=== PATIENT | male | born 1970 | race Caucasian/White ===

== ENCOUNTER 2017-05-16 07:10 | Inpatient (IN) | payer SELFPAY ==
[~2017-05-16] VITALS: Ht 180.3 cm; Wt 127.0 kg
[2017-05-16] VITALS (9 sets, daily range): BP systolic 138–171; BP diastolic 88–109; PULSE 86–112; RESP 13–19; TEMP 97.7–99.4; O2SAT 94–98
[~2017-05-16 07:10] MED LIST: IBUP600T26 PO; PALI117P IM; PENI500T PO; PERC5TAB12 PO
[2017-05-16] MEDS ORDERED: IOHEXOL 350 MG/ML 10 ML VIAL (for RAD DIAG) IVCONTRAST ONE (07:11)
[2017-05-16] MEDS ORDERED: SODIUM CHLOR 0.9% 1000 ML INJ 1,000 ML IV SCH (07:19)
[2017-05-16] MEDS ORDERED: DIPHTH/TETANUS/ACEL PERTUSSIS (BOOSTER) 0.5 ML VIAL/PFS IM ONE (07:30)
[2017-05-16] MEDS ORDERED: SODIUM CHLORIDE 0.9% FLUSH 10 ML FLUSH IVF PRN (07:30)
[2017-05-16] MEDS ORDERED: ceFAZolin 2 GM PREMIX 50 ML IV ONE (07:30)
[2017-05-16 07:59] LABS: I-STAT POTASSIUM 2.8 MMOL/L (3.5-4.9)
[2017-05-16 08:02] LABS: AUTOMATED NEUTROPHIL # 6.4 TH/MM3 (1.8-7.7); BASOPHIL % 0.4 % (0.0-2.0); HEMATOCRIT 43.4 % (39.0-51.0); HEMO FLAGS DIFF FINAL; LYMPH % 17.3 % (9.0-44.0); LYMPHOCYTE # 1.5 TH/MM3 (1.0-4.8); MEAN CELL VOLUME 92.4 FL (80.0-100.0); MEAN CORPUSCULAR HEMOGLOBIN 32.2 PG (27.0-34.0); MEAN CORPUSCULAR HGB CONC 34.9 % (32.0-36.0); MONO % 8.5 % (0.0-8.0); NEUT % 73.8 % (16.0-70.0); PLATELET COUNT 164 TH/MM3 (150-450); RED CELL DISTRIBUTION WIDTH 14.1 % (11.6-17.2); WHITE BLOOD COUNT 8.7 TH/MM3 (4.0-11.0)
[2017-05-16 08:13] LABS: APTT (PATIENT) 23.1 SEC (24.3-30.1); INTERNATIONAL NORMALIZED RATIO 1.1 RATIO; PROTHROMBIN TIME - PATIENT 11.9 SEC (9.8-11.6)
[2017-05-16] MEDS ORDERED: HYDROmorphone HCL PF 1 MG/ML VIAL IV PUSH ONE (08:15)
--- NOTE | 2017-05-16 08:38 | RADRPT ---
EXAM DATE/TIME: 05/16/2017 08:23 [facility] COMPARISON: No previous studies available for comparison. INDICATIONS : Seizure today with fall. RADIATION DOSE: 53.40 CTDIvol (mGy) MEDICAL HISTORY : None SURGICAL HISTORY : None. ENCOUNTER: Initial ACUITY: 1 day PAIN SCALE: 0/10 LOCATION: cranial TECHNIQUE: Multiple contiguous axial images were obtained of the head. Using automated exposure control and adj ustment of the mA and/or kV according to patient size, radiation dose was kept as low as reasonably a chievable to obtain optimal diagnostic quality images. DICOM format image data is available electro nically for review and comparison. FINDINGS: CEREBRUM: The ventricles are normal for age. No evidence of midline shift, mass lesion, hemorrhage or acute in farction. No extra-axial fluid collections are seen. POSTERIOR FOSSA: The cerebellum and brainstem are intact. The 4th ventricle is midline. The cerebellopontine angle i s unremarkable. EXTRACRANIAL: The visualized portion of the orbits is intact. SKULL: The calvaria is intact. No evidence of skull fracture. CONCLUSION: No acute intracranial disease. Pepe Samuels MD on May 16, 2017 at 8:31 Board Certified Radiologist. This report was verified electronically.
--- NOTE | 2017-05-16 08:56 | RADRPT ---
EXAM DATE/TIME: 05/16/2017 08:23 [facility] COMPARISON: No previous studies available for comparison. INDICATIONS : Possible seizure with fall. RADIATION DOSE: 21.64 CTDIvol (mGy) MEDICAL HISTORY : None SURGICAL HISTORY : None. ENCOUNTER: Initial ACUITY: 1 day PAIN SCALE: 4/10 LOCATION: neck TECHNIQUE: Volumetric scanning of the cervical spine was performed. Multiplanar reconstructions in the sagittal, coronal and oblique axial planes were performed. Using automated exposure control and adjustment o f the mA and/or kV according to patient size, radiation dose was kept as low as reasonably achievable to obtain optimal diagnostic quality images. DICOM format image data is available electronically f or review and comparison. FINDINGS: VERTEBRAE: Normal vertebral body height. ALIGNMENT: No evidence of subluxation. C2-C3: The bony spinal canal is normal in size. No evidence of disc bulge or herniation. The neural forami na are bilaterally patent. C3-C4: The bony spinal canal is normal in size. No evidence of disc bulge or herniation. The neural forami na are bilaterally patent. C4-C5: The bony spinal canal is normal in size. No evidence of disc bulge or herniation. The neural forami na are bilaterally patent. C5-C6: The bony spinal canal is normal in size. No evidence of disc bulge or herniation. The neural forami na are bilaterally patent. C6-C7: The bony spinal canal is normal in size. No evidence of disc bulge or herniation. The neural forami na are bilaterally patent. C7-T1: The bony spinal canal is normal in size. No evidence of disc bulge or herniation. The neural forami na are bilaterally patent. CONCLUSION: No fracture or subluxation. Pepe Samuels MD on May 16, 2017 at 8:51 Board Certified Radiologist. This report was verified electronically.
--- NOTE | 2017-05-16 08:59 | RADRPT ---
EXAM DATE/TIME: 05/16/2017 08:28 [facility] COMPARISON: No previous studies available for comparison. INDICATIONS : Trauma; fall. IV CONTRAST: 95 cc Omnipaque 350 (iohexol) IV ; Cumulative dose for multiple exams. RADIATION DOSE: 20.41 CTDIvol (mGy) ; Combined studies - Thorax/Abdomen/Pelvis MEDICAL HISTORY : None SURGICAL HISTORY : None. ENCOUNTER: Initial ACUITY: 1 day PAIN SCALE: 0/10 LOCATION: chest TECHNIQUE: Volumetric scanning of the chest was performed. Using automated exposure control and adjustment of t he mA and/or kV according to patient size, radiation dose was kept as low as reasonably achievable to obtain optimal diagnostic quality images. DICOM format image data is available electronically for review and comparison. Follow-up recommendations for detected pulmonary nodules are based at a minimum on nodule size and pa tient risk factors according to Fleischner Society Guidelines. FINDINGS: LUNGS: There is no consolidation or pneumothorax. No concerning pulmonary nodule is visualized. PLEURA: There is no pleural thickening or pleural effusion. MEDIASTINUM: The heart and great vessels demonstrate no acute abnormality. There is no mediastinal or hilar lymph adenopathy. AXILLAE: Within normal limits. No lymphadenopathy. SKELETAL: Within normal limits for patient age. MISCELLANEOUS: The visualized upper abdominal organs demonstrate no acute abnormality. Gynecomastia greater on the r ight. Severe hepatic steatosis. Small hiatal hernia. CONCLUSION: 1. No acute thoracic injury. 2. No consolidation or pneumothorax. 3. Gynecomastia and severe hepatic steatosis. Pepe Samuels MD on May 16, 2017 at 8:55 Board Certified Radiologist. This report was verified electronically.
--- NOTE | 2017-05-16 09:03 | RADRPT ---
EXAM DATE/TIME: 05/16/2017 08:28 [facility] COMPARISON: No previous studies available for comparison. INDICATIONS : Trauma; fall. IV CONTRAST: 95 cc Omnipaque 350 (iohexol) IV ; Cumulative dose for multiple exams. ORAL CONTRAST: No oral contrast ingested. RADIATION DOSE: 20.41 CTDIvol (mGy) ; Combined studies - Thorax/Abdomen/Pelvis MEDICAL HISTORY : None SURGICAL HISTORY : None. ENCOUNTER: Initial ACUITY: 1 day PAIN SCALE: 0/10 LOCATION: lower quadrant TECHNIQUE: Volumetric scanning of the abdomen and pelvis was performed. Using automated exposure control and ad justment of the mA and/or kV according to patient size, radiation dose was kept as low as reasonably achievable to obtain optimal diagnostic quality images. DICOM format image data is available electro nically for review and comparison. FINDINGS: LOWER LUNGS: The visualized lower lungs are clear. LIVER: Decreased density without lesion. There is no dilation of the biliary tree. No calcified gallstones . SPLEEN: Normal size without lesion. PANCREAS: Within normal limits. KIDNEYS: Normal in size and shape. There is no mass, stone or hydronephrosis. ADRENAL GLANDS: Within normal limits. VASCULAR: There is no aortic aneurysm. BOWEL/MESENTERY: The stomach, small bowel, and colon demonstrate no acute abnormality. There is no free intraperitone al air or fluid. Hiatal hernia. ABDOMINAL WALL: Within normal limits. RETROPERITONEUM: There is no lymphadenopathy. BLADDER: No wall thickening or mass. REPRODUCTIVE: Within normal limits. INGUINAL: There is no lymphadenopathy or hernia. MUSCULOSKELETAL: Within normal limits for patient age. CONCLUSION: 1. Severe hepatic steatosis. 2. No abdominal visceral injury. Pepe Samuels MD on May 16, 2017 at 8:58 Board Certified Radiologist. This report was verified electronically.
[2017-05-16] MEDS ORDERED: PROPOFOL 1000 MG/100 ML INJ 100 ML ONE (09:04)
--- NOTE | 2017-05-16 09:06 | RADRPT ---
EXAM DATE/TIME: 05/16/2017 08:43 [facility] COMPARISON: No previous studies available for comparison. INDICATIONS : Left ankle pain and swelling after falling in kitchen. MEDICAL HISTORY : None. SURGICAL HISTORY : None. ENCOUNTER: Initial ACUITY: 1 day PAIN SCORE: 9/10 LOCATION: Left ankle FINDINGS: There is an oblique fracture of the lateral malleolus with medial dislocation and significant widenin g of the medial joint space. Talar dome is grossly intact. Significant soft tissue swelling and disru ption of the medial ankle. CONCLUSION: 1. Lateral malleolar fracture dislocation, as above. Moe Hernandez MD on May 16, 2017 at 8:55 Board Certified Radiologist. This report was verified electronically.
[2017-05-16] MEDS ORDERED: PROPOFOL 200 MG/20 ML AMP IV ONE ×2 (09:15→12:00)
--- NOTE | 2017-05-16 09:27 | PD ---
HPI Chief Complaint: Fall Time Seen by Provider: 07:19 Travel History International Travel<30 days: No Contact w/Intl Traveler<30days: No Traveled to known affect area: No History of Present Illness HPI 47-year-old male who is a heavy alcoholic was brought to the emergency room by EMS after he sustained a fall last night while he was drunk and was noticed to have an open ankle fracture by EMS. The exact time of fall was unknown. Patient was intoxicated and thinks that he may have had a seizure which made him fall. He knows that he fell from a ground-level. He was complaining of some right-sided rib pain and the ankle pain. He was brought in splinted. Patient was slightly tachycardic when he was brought in. Unknown tetanus status. Patient says that he drank one fourth of LOC, and that's how much she drinks every day. [facility] Past Medical History Narrative Medical List of his past medical, surgical, social and family history reviewed from the nursing note. Medical History: Denies Significant Hx Bipolar Disorder: Yes Tetanus Vaccination: < 5 Years Past Surgical History Surgical History: No Previous Surgery Social History Alcohol Use: Yes (DAILY "COUPLE SHOTS OF VODKA") Tobacco Use: No Substance Use: Yes ("EVERYTHING") Allergies-Medications (Allergen,Severity, Reaction): Coded Allergies: penicillin G (Verified Allergy, Severe, UNKNOWN, 05/16/17) Uncoded Allergies: SNAKI ANI VENOM (Allergy, Severe, UNKNOWN, 02/02/10) Comments List of his allergies reviewed from the nursing note. Reported Meds & Prescriptions Reported Meds & Active Scripts Active No Active Prescriptions or Reported Medications Narrative Medication List of his home medications reviewed from the nursing note. Review of Systems Except as stated in HPI: all other systems reviewed are Neg Physical Exam Narrative GENERAL: Intoxicated, obese, disheveled, poor hygiene SKIN: Focused skin assessment warm/dry. Poor skin hygiene HEAD: Atraumatic. Normocephalic. EYES: Pupils equal and round. No scleral icterus. No injection or drainage. ENT: No nasal bleeding or discharge. Mucous membranes pink and moist. NECK: Trachea midline. No JVD. CARDIOVASCULAR: Regular rate and rhythm. No murmur appreciated. RESPIRATORY: No accessory muscle use. Clear to auscultation. Breath sounds equal bilaterally. GASTROINTESTINAL: Abdomen soft, non-tender, nondistended. Hepatic and splenic margins not palpable. MUSCULOSKELETAL: Left ankle open fracture with 1 inch of bone protruding out of 4 cm skin laceration medially. Distal pulses intact no acute bleeding NEUROLOGICAL: Intoxicated, GCS of 14. No obvious cranial nerve deficits. Motor grossly within normal limits. Slurred speech. PSYCHIATRIC: Appropriate mood and affect; insight and judgment normal. Data Data Last Documented VS Vital Signs Date Time Temp Pulse Resp B/P (MAP) Pulse Ox O2 Delivery O2 Flow Rate FiO2 05/16/17 09:23 98 Nasal Cannula 3.00 05/16/17 07:29 99.4 112 19 153/94 (113) Orders Orders I-Stat Profile (05/16/17:19) I-Stat Creatinine (05/16/17:19) Complete Blood Count With Diff (05/16/17:19) Prothrombin Time / Inr (Pt) (05/16/17 07:19) Act Partial Throm Time (Ptt) (05/16/17 07:19) Type And Screen (05/16/17 07:19) Alcohol (Ethanol) (05/16/17 07:19) Urinalysis - C+S If Indicated (05/16/17 07:19) Drug Screen, Random Urine (05/16/17 07:19) Ct Brain W/O Iv Contrast(Rout) (05/16/17 07:19) Ct Cerv Spine W/O Contrast (05/16/17 07:19) Ct Abd/Pel W Iv Contrast(Rout) (05/16/17 07:19) Ct Thorax/ Chest W Iv Contrast (05/16/17 07:19) Iv Access Insert/Monitor (05/16/17 07:19) Ecg Monitoring (05/16/17 07:19) Oximetry (05/16/17 07:19) Oxygen Administration (05/16/17 07:19) Cefazolin 2 Gm Premix (Ancef 2 Gm Premix (05/16/17 07:30) Ggvd-Liz-Xnxyef (Booster) Inj (Boostrix (05/16/17 07:30) Sodium Chlor 0.9% 1000 Ml Inj (Ns 1000 M (05/16/17 07:19) Sodium Chloride 0.9% Flush (Ns Flush) (05/16/17 07:30) Hydromorphone Pf Inj (Dilaudid Pf Inj) (05/16/17 08:15) Ankle, Limited (Ap&Lat) (05/16/17 ) Iohexol 350 Inj (Omnipaque 350 Inj) (05/16/17 07:11) Propofol 1000 Mg/100 Ml Inj (Diprivan 10 (05/16/17 09:04) Propofol 200 Mg/20 Ml Inj (Diprivan 200 (05/16/17 09:15) Ankle, Limited (Ap&Lat) (05/16/17 ) Potassium Chlor 20 Meq Premix (Kcl 20 Me (05/16/17 09:45) Potassium Chloride (Kcl) (05/16/17 09:45) Admit Order (Ed Use Only) (05/16/17 09:38) Labs Laboratory Tests Test 05/16/17 07:40 White Blood Count 8.7 TH/MM3 Red Blood Count 4.70 MIL/MM3 Hemoglobin 15.1 GM/DL Bedside Hemoglobin 15.6 G/DL Hematocrit 43.4 % Bedside Hematocrit 46.0 % Mean Corpuscular Volume 92.4 FL Mean Corpuscular Hemoglobin 32.2 PG Mean Corpuscular Hemoglobin Concent 34.9 % Red Cell Distribution Width 14.1 % Platelet Count 164 TH/MM3 Mean Platelet Volume 8.5 FL Neutrophils (%) (Auto) 73.8 % Lymphocytes (%) (Auto) 17.3 % Monocytes (%) (Auto) 8.5 % Eosinophils (%) (Auto) 0.0 % Basophils (%) (Auto) 0.4 % Neutrophils # (Auto) 6.4 TH/MM3 Lymphocytes # (Auto) 1.5 TH/MM3 Monocytes # (Auto) 0.7 TH/MM3 Eosinophils # (Auto) 0.0 TH/MM3 Basophils # (Auto) 0.0 TH/MM3 CBC Comment DIFF FINAL Differential Comment Prothrombin Time 11.9 SEC Prothromb Time International Ratio 1.1 RATIO Activated Partial Thromboplast Time 23.1 SEC Bedside Sodium 139 MMOL/L Bedside Potassium 2.8 MMOL/L Bedside Chloride 96 MMOL/L Bedside Blood Urea Nitrogen 7 MG/DL Bedside Creatinine 1.3 MG/DL Bedside Glucose 176 MG/DL Ethyl Alcohol Level 300 MG/DL MDM Medical Decision Making Medical Screen Exam Complete: Yes Emergency Medical Condition: Yes Medical Record Reviewed: Yes Differential Diagnosis Ankle fracture, open ankle fracture, compound fracture, intracranial injury, cervical fracture, intrathoracic injury, intra-abdominal injury Narrative Course 9:40 AM patient was juarez scanned given his intoxicated state. All the CT scan is negative from trauma perspective. Patient does have alcoholic hepatic steatosis. The ankle was reduced under conscious sedation by me. Please refer to the procedure note. Patient is a heavy withdrawal risk given his alcoholic dependence state. Alcohol level was 300. I decided to admit him under hospitalist. I just discussed with Dr. Herman from orthopedic service who will take the patient to the OR. She wants the patient to be nothing by mouth. Patient was given 2 g of Ancef IV and tetanus. Critical Care Narrative Aggregate critical care time was 30 minutes. Time to perform other separately billable procedures was not included in the critical care time. My time did not include minutes spent treating any other patients simultaneously or on activities that did not directly contribute to the patient's treatment. The services I provided to this patient were to treat and/or prevent clinically significant deterioration that could result in: Alcohol intoxication, open fracture, fall I provided critical care services requiring my management, as noted below: Chart data review, documentation time, medication orders and management, vital sign assessments/reviewing monitor data, ordering and reviewing lab tests, ordering and interpreting/reviewing x-rays and diagnostic studies, care of the patient and discussion of the patient with the admitting physicians. Procedures Procedure Narrative After the risks and benefits were discussed the following procedure was performed: MODERATE SEDATION: The patient was placed on a airport operations supervisor and pulse oximetry. An ambu bag and suction was immediately available at bedside. The patient was monitored by the nurse. Oxygen saturation , heart rate and blood pressure were monitored. Procedural sedation was acheived using 100 mg of IV propofol. The patient was observed until awake and alert. Procedural Sedation time in attendance was 25 minutes. Open fracture reduction: The open fracture was washed well with Betadine. Under conscious sedation the fracture was reduced along with the help of the [employer] [facility]. The inferior lip of the laceration skin was pulled out so that the open bone could be reinserted under the skin. Once there was an anatomic alignment and distal pulses were palpated patient was put in a [place] splint by the [employer]. Patient tolerated the procedure well. EKG Prior to Arrival: No Physician Communication Physician Communication Dr. Herman Diagnosis Primary Impression: Fall Qualified Codes: W19.XXXA - Unspecified fall, initial encounter Additional Impressions: Open ankle fracture Qualified Codes: S82.891C - Other fracture of right lower leg, initial encounter for open fracture type IIIA, IIIB, or IIIC Alcohol intoxication Qualified Codes: F10.929 - Alcohol use, unspecified with intoxication, unspecified Alcohol dependence Qualified Codes: F10.29 - Alcohol dependence with unspecified alcohol-induced disorder Admitting Information Admitting Physician Requests: Admit Scripts No Active Prescriptions or Reported Meds Nadeem Khan MD May 16, 2017 09:27
[2017-05-16] MEDS ORDERED: POTASSIUM CHLORIDE 20 MEQ CONTROLLED RELEASE TAB PO ONE (09:45)
[2017-05-16] MEDS ORDERED: POTASSIUM CHLOR 20 MEQ PREMIX 100 ML IV ONE (09:45)
[2017-05-16] MEDS ORDERED: SODIUM CHLOR 0.9% 1000 ML INJ 1,000 ML IV ONE (10:00)
[2017-05-16] MEDS ORDERED: MAGNESIUM SULFATE 1 GM PREMIX 100 ML IV ONE (10:00)
[2017-05-16] MEDS ORDERED: THIAMINE HCL 200 MG/2 ML VIAL IM ONE (10:00)
--- NOTE | 2017-05-16 10:23 | RADRPT ---
EXAM DATE/TIME: 05/16/2017 09:57 [facility] COMPARISON: ANKLE LEFT LIMITED (AP&LAT), May 16, 2017, 8:43. INDICATIONS : Left ankle post reduction. MEDICAL HISTORY : None. SURGICAL HISTORY : None. ENCOUNTER: Initial ACUITY: 1 day PAIN SCORE: Non-responsive. LOCATION: Left ankle FINDINGS: Two view exam was performed of the left ankle. Casted views demonstrates persistent fractures of the lateral malleolus and posterior malleolus with slight improvement in alignment but still disruption o f the ankle mortise. CONCLUSION: Slight improvement alignment with continued disruption of the ankle mortise. Pepe Samuels MD on May 16, 2017 at 10:20 Board Certified Radiologist. This report was verified electronically.
[2017-05-16] MEDS ORDERED: SENNOSIDES 8.6 MG TAB PO PRN ×2 (11:30→20:30)
[2017-05-16] MEDS ORDERED: NALOXONE HCL 0.4 MG/ML AMP IV PUSH PRN (11:30)
[2017-05-16] MEDS ORDERED: SODIUM CHLORIDE 0.9% FLUSH 10 ML FLUSH IV FLUSH PRN ×2 (11:30→20:30)
[2017-05-16] MEDS ORDERED: BISACODYL 10 MG SUPP RECTAL PRN ×2 (11:30→20:30)
[2017-05-16] MEDS ORDERED: MORPHINE SULFATE 2 MG/ML INJ IM PRN (11:30)
[2017-05-16] MEDS ORDERED: MAGNESIUM HYDROXIDE SUSP 30 ML CUP PO PRN ×2 (11:30→20:30)
[2017-05-16] MEDS ORDERED: MORPHINE SULFATE 2 MG/ML INJ IV PUSH PRN (11:30)
[2017-05-16] MEDS ORDERED: ACETAMINOPHEN 325 MG TAB PO PRN (11:30)
[2017-05-16] MEDS ORDERED: ONDANSETRON HCL 4 MG/2 ML VIAL IVP PRN (11:30)
[2017-05-16] MEDS ORDERED: LACTULOSE SYRUP 20 GM/30 ML CUP PO PRN ×2 (11:30→20:30)
[2017-05-16] MEDS: HYDROmorphone HCL PF 1 MG/ML VIAL IV PUSH PRN ×3 (11:50→23:37)
[2017-05-16] MEDS ORDERED: MIDAZOLAM HCL 2 MG/2 ML VIAL IV ONE (12:00)
[2017-05-16] MEDS ORDERED: LIDOCAINE HCL 1% PF 5 ML AMPULE OTHER ONE (12:00)
[2017-05-16] MEDS ORDERED: NEOSTIGMINE 3 MG/3 ML SYR IV ONE (12:00)
[2017-05-16] MEDS ORDERED: LORazepam 2 MG/ML VIAL IV PUSH PRN ×4 (12:00)
[2017-05-16] MEDS ORDERED: GLYCOPYRROLATE 1 MG/5 ML SYRINGE IV PUSH ONE (12:00)
[2017-05-16] MEDS ORDERED: ROCURONIUM INJ 50 MG/5 ML SYRINGE IV PUSH ONE (12:00)
[2017-05-16] MEDS ORDERED: FLUMAZENIL 0.5 MG/5 ML VIAL IV PUSH PRN (12:00)
[2017-05-16] MEDS ORDERED: LACTATED RINGER'S 1000 ML INJ 1,000 ML IV ONE (12:00)
[2017-05-16] MEDS ORDERED: ONDANSETRON HCL 4 MG/2 ML VIAL IV PUSH ONE (12:00)
[2017-05-16] MEDS ORDERED: LORazepam 2 MG TAB PO PRN (12:00)
--- NOTE | 2017-05-16 12:01 | HHI.HP ---
HPI Service [facility] Hospitalists Primary Care Physician No Primary Care Physician Admission Diagnosis open ankle fracture, alcohol dependence Diagnoses: Chief Complaint: Ankle pain Travel History International Travel<30 Days: No Contact w/Intl Traveler <30 Da: No Traveled to Known Affected Are: No History of Present Illness 47 yo male with h/o of alcohol abuse but no significant past medical history presents to [place] after a fall and left ankle pain. Patient states that he fell in the kitchen however is unable to give any further details as he does not remember and intoxicated with alcohol. As per Ed physician report, patient' s mother told EMS patient passed out but patient does not remember. Complains of some rib pain and left ankle pain. Patient seen in ED found to have an open fracture of left ankle. Fracture was reduced by ED physician and placed on a cast. Patient denies cp/sob, fevers, chills. C/o tremors in both upper extremities but denies ever having seizures or having withdrawal symptoms. Denies cough. Review of Systems As per HPI, other systems reviewed by me and negative Past Family Social History Past Medical History Denies Past Surgical History Denies Reported Medications Reported Meds & Active Scripts Active No Active Prescriptions or Reported Medications Allergies: Coded Allergies: penicillin G (Verified Allergy, Severe, UNKNOWN, 05/16/17) Uncoded Allergies: SNAKI ANI VENOM (Allergy, Severe, UNKNOWN, 02/02/10) Active Ordered Medications Current Medications Medications (Trade) Dose Ordered Sig/Alexandre Route Start Time Stop Time Status Last Admin Sodium Chloride 1,000 ml @ 100 mls/hr Q10H IV 05/16/17 13:00 05/16/17 20:45 (Tylenol) 650 mg Q4H PRN PO 05/16/17 11:30 (Zofran Inj) 4 mg Q6H PRN IVP 05/16/17 11:30 (Narcan Inj) 0.4 mg UNSCH PRN IV PUSH 05/16/17 11:30 (Dilaudid Pf Inj) 1 mg Q4H PRN IV PUSH 05/16/17 11:30 05/16/17 23:37 Multivitamins 10 ml/Folic Acid 1 mg/Sodium Chloride 510.2 ml @ 125 mls/hr Q24H IV 05/16/17 15:00 05/21/17 14:59 05/16/17 15:31 (Vitamin B1) 100 mg DAILY PO 05/20/17 09:00 (Romazicon Inj) 0.2 mg Q1M PRN IV PUSH 05/16/17 12:00 (Ativan) 1 mg Q4H PRN PO 05/16/17 12:00 05/17/17 01:45 (Ativan Inj) 1 mg Q4H PRN IV PUSH 05/16/17 12:00 05/16/17 13:53 (Ativan) 2 mg Q2H PRN PO 05/16/17 12:00 (Ativan Inj) 2 mg Q2H PRN IV PUSH 05/16/17 12:00 (Ativan Inj) 2 mg Q1H PRN IV PUSH 05/16/17 12:00 (Ativan Inj) 2 mg Q15M PRN IV PUSH 05/16/17 12:00 Thiamine HCl 100 mg/Sodium Chloride 101 ml @ 100 mls/hr Q24H IV 05/17/17 12:00 05/19/17 13:01 (Morphine Inj) 2 mg Q4H PRN IV PUSH 05/16/17 14:00 (Morphine Inj) 4 mg Q4H PRN IV PUSH 05/16/17 14:00 05/16/17 22:18 (NS Flush) 2 ml UNSCH PRN IV FLUSH 05/16/17 20:30 (NS Flush) 2 ml BID IV FLUSH 05/16/17 21:00 Cefazolin Sodium/ Dextrose 50 ml @ 100 mls/hr Q6H IV 05/16/17 22:00 05/17/17 10:29 05/16/17 22:10 (Chhaya-Colace) 1 tab BID PO 05/16/17 21:00 (Milk Of Magnesia Liq) 30 ml Q12H PRN PO 05/16/17 20:30 (Senokot) 17.2 mg Q12H PRN PO 05/16/17 20:30 (Dulcolax Supp) 10 mg DAILY PRN RECTAL 05/16/17 20:30 (Lactulose Liq) 30 ml DAILY PRN PO 05/16/17 20:30 Miscellaneous Information ALL NURSING DEPARTME... UNSCH PRN .XX 05/16/17 20:05 05/17/17 20:04 (Heparin Inj) 5,000 units Q8H SQ 05/17/17 22:00 Family History Denies family h/o diabetes, hear diseae or cancer Social History denies smoking Drinks every day heavily Physical Exam Vital Signs Vital Signs Date Time Temp Pulse Resp B/P (MAP) Pulse Ox O2 Delivery O2 Flow Rate FiO2 05/16/17 09:23 98 Nasal Cannula 3.00 05/16/17 09:22 98 3.00 05/16/17 07:29 99.4 112 19 153/94 (113) 96 Room Air Physical Exam GENERAL: This is a well-nourished, well-developed patient, in no apparent distress. SKIN: No rashes, ecchymoses or lesions. Cool and dry. HEAD: Atraumatic. Normocephalic. No temporal or scalp tenderness. EYES: Pupils equal round and reactive. Extraocular motions intact. No scleral icterus. No injection or drainage. ENT: Nose without bleeding, purulent drainage or septal hematoma. Throat without erythema, tonsillar hypertrophy or exudate. Uvula midline. Airway patent. NECK: Trachea midline. No JVD or lymphadenopathy. Supple, nontender, no meningeal signs. CARDIOVASCULAR: Regular rate and rhythm without murmurs, gallops, or rubs. RESPIRATORY: Clear to auscultation. Breath sounds equal bilaterally. No wheezes , rales, or rhonchi. GASTROINTESTINAL: Abdomen soft, non-tender, nondistended. No hepato-splenomegaly , or palpable masses. No guarding. MUSCULOSKELETAL: Extremities without clubbing, cyanosis, or edema. No joint tenderness, effusion, or edema noted. No calf tenderness. Negative Homans sign bilaterally. NEUROLOGICAL: Awake and alert. Cranial nerves II through XII intact. Motor and sensory grossly within normal limits. Five out of 5 muscle strength in all muscle groups. Normal speech. Laboratory Laboratory Tests Test 05/16/17 07:40 White Blood Count 8.7 Red Blood Count 4.70 Hemoglobin 15.1 Bedside Hemoglobin 15.6 Hematocrit 43.4 Bedside Hematocrit 46.0 Mean Corpuscular Volume 92.4 Mean Corpuscular Hemoglobin 32.2 Mean Corpuscular Hemoglobin Concent 34.9 Red Cell Distribution Width 14.1 Platelet Count 164 Mean Platelet Volume 8.5 Neutrophils (%) (Auto) 73.8 Lymphocytes (%) (Auto) 17.3 Monocytes (%) (Auto) 8.5 Eosinophils (%) (Auto) 0.0 Basophils (%) (Auto) 0.4 Neutrophils # (Auto) 6.4 Lymphocytes # (Auto) 1.5 Monocytes # (Auto) 0.7 Eosinophils # (Auto) 0.0 Basophils # (Auto) 0.0 CBC Comment DIFF FINAL Differential Comment Prothrombin Time 11.9 Prothromb Time International Ratio 1.1 Activated Partial Thromboplast Time 23.1 Bedside Sodium 139 Bedside Potassium 2.8 Bedside Chloride 96 Bedside Blood Urea Nitrogen 7 Bedside Creatinine 1.3 Bedside Glucose 176 Ethyl Alcohol Level 300 Result Diagram: 05/16/17739 Imaging Last Impressions Head CT 05/16/17718 Signed Impressions: Service Date/Time: Tuesday, May 16, 2017 08:23 - CONCLUSION: No acute intracranial disease. Pepe Samuels MD Chest CT 05/16/17718 Signed Impressions: Service Date/Time: Tuesday, May 16, 2017 08:28 - CONCLUSION: 1. No acute thoracic injury. 2. No consolidation or pneumothorax. 3. Gynecomastia and severe hepatic steatosis. Pepe Samuels MD Cervical Spine CT 05/16/17718 Signed Impressions: Service Date/Time: Tuesday, May 16, 2017 08:23 - CONCLUSION: No fracture or subluxation. Pepe Samuels MD Abdomen/Pelvis CT 05/16/17718 Signed Impressions: Service Date/Time: Tuesday, May 16, 2017 08:28 - CONCLUSION: 1. Severe hepatic steatosis. 2. No abdominal visceral injury. Pepe Samuels MD Ankle X-Ray 05/16/17 0000 Signed Impressions: Service Date/Time: Tuesday, May 16, 2017 19:07 - CONCLUSION: Limited images as detailed above. MD Brandee Serrano Jr. VTE Risk Assessment Caprini VTE Risk Assessment: Mod/High Risk (score >= 2) Caprini Risk Assessment Model Point Value = 1 Point Value = 2 Point Value = 3 Point Value = 5 Age 41-60 Minor surgery BMI > 25 kg/m2 Swollen legs Varicose veins or History of unexplained or recurrent spontaneous Oral contraceptives or hormone replacement Sepsis (< 1 month) Serious lung disease, including pneumonia (< 1 month) Abnormal pulmonary function Acute myocardial infarction Congestive heart failure (< 1 month) History of inflammatory bowel disease Medical patient at bed rest Age 61-74 Arthroscopic surgery Major open surgery (> 45 min) Laparoscopic surgery (> 45 min) Malignancy Confined to bed (> 72 hours) Immobilizing plaster cast Central venous access Age >= 75 History of VTE Family history of VTE Factor V Leiden Prothrombin [id number] Lupus anticoagulant Anticardiolipin antibodies Elevated serum homocysteine Heparin-induced thrombocytopenia Other congenital or acquired thrombophilia Stroke (< 1 month) Elective arthroplasty Hip, pelvis, or leg fracture Acute spinal cord injury (< 1 month) Prophylaxis Regimen Total Risk Factor Score Risk Level Prophylaxis Regimen 0-1 Low Early ambulation 2 Moderate Order ONE of the following: *Sequential Compression Device (SCD) *Heparin 5000 units SQ BID 3-4 Higher Order ONE of the following medications: *Heparin 5000 units SQ TID *Enoxaparin/Lovenox 40 mg SQ daily (WT < 150 kg, CrCl > 30 mL/min) *Enoxaparin/Lovenox 30 mg SQ daily (WT < 150 kg, CrCl > 10-29 mL/min) *Enoxaparin/Lovenox 30 mg SQ BID (WT < 150 kg, CrCl > 30 mL/min) AND/OR *Sequential Compression Device (SCD) 5 or more Highest Order ONE of the following medications: *Heparin 5000 units SQ TID (Preferred with Epidurals) *Enoxaparin/Lovenox 40 mg SQ daily (WT < 150 kg, CrCl > 30 mL/min) *Enoxaparin/Lovenox 30 mg SQ daily (WT < 150 kg, CrCl > 10-29 mL/min) *Enoxaparin/Lovenox 30 mg SQ BID (WT < 150 kg, CrCl > 30 mL/min) AND *Sequential Compression Device (SCD) Assessment and Plan Problem List: (1) Fall ICD Code: W19.XXXA - Unspecified fall, initial encounter Status: Acute (2) Open ankle fracture ICD Code: S82.899B - Other fracture of unspecified lower leg, initial encounter for open fracture type I or II Status: Acute (3) Alcohol intoxication ICD Code: F10.929 - Alcohol use, unspecified with intoxication, unspecified Status: Acute (4) Alcohol dependence ICD Code: F10.20 - Alcohol dependence, uncomplicated Status: Acute (5) Alcohol withdrawal ICD Code: F10.239 - Alcohol dependence with withdrawal, unspecified (6) Hypokalemia ICD Code: E87.6 - Hypokalemia Assessment and Plan Admit to ortho floor keep npo IV fluids orthopedic surgery consulted by ED pain control w IV Morphine and IV Dilaudid for breakthrough pain. CIWA protocol IV thiamine, Folate and multivitamins No SCD's give lower extremity injury patient for surgical repair today - no chemoprophylaxis Physician Certification Order for Inpatient Services The services are ordered in accordance with Medicare regulations or non- Medicare payer requirements, as applicable. In the case of services not specified as inpatient-only, they are appropriately provided as inpatient services in accordance with the 2-midnight benchmark. days is the estimated time the patient will need to remain in the hospital, assuming treatment plan goals are met and no additional complications. Problem Qualifiers (1) Fall: Qualified Codes: W19.XXXA - Unspecified fall, initial encounter (2) Open ankle fracture: Qualified Codes: S82.891C - Other fracture of right lower leg, initial encounter for open fracture type IIIA, IIIB, or IIIC (3) Alcohol intoxication: Qualified Codes: F10.929 - Alcohol use, unspecified with intoxication, unspecified (4) Alcohol dependence: Qualified Codes: F10.29 - Alcohol dependence with unspecified alcohol-induced disorder Janes Caldera MD May 16, 2017 12:01
[2017-05-16] MEDS: SODIUM CHLOR 0.9% 1000 ML INJ 1,000 ML IV SCH ×2 (13:14→20:45)
[2017-05-16 13:37] LABS: BLOOD, URINE NEG (NEG); COMMENT (UR) CATH-CULT NOT IND; CULTURE IF INDICATED CATH CULTURE NOT IND; GLUCOSE,URINE NEG (NEG); KETONE, URINE 10 mg/dL (NEG); MUCUS URINE FEW /lpf (OCC); NITRITE,URINE NEG (NEG); URINE COLOR YELLOW (YELLW/STRAW)
[2017-05-16] MEDS: HEPARIN SODIUM - SQ 10,000 UNITS/ML VIAL SQ SCH ×2 (13:52→22:00)
[2017-05-16] MEDS ORDERED: THIAMINE INJ 100 MG in SODIUM CHLORIDE 0.9% INJ 100 ML IV SCH ×2 (14:00→15:00)
--- NOTE | 2017-05-16 14:07 | PD.CONS ---
cc: Cora Herman MD HPI Service Orthopedic Surgeons Consult Requested By Reason for Consult open left ankle fracture Primary Care Physician No Primary Care Physician Admission Diagnosis open ankle fracture, alcohol dependence Diagnoses: Chief Complaint: left ankle wound and pain. History of Present Illness 47-year-old male who presents after a reported slip and fall at home in his kitchen. However, he does appear significantly intoxicated even after several hours in the emergency department. He denies any head injury. He denies any other extremity injury. He denies any numbness or tingling. He denies chest pain, shortness of breath, abdominal pain. He does report some mild nausea which has been persistent over the past several weeks. Review of Systems Constitutional: DENIES: Fever Endocrine: DENIES: Polyuria Eyes: DENIES: Blurred vision Ears, nose, mouth, throat: DENIES: Running Nose Respiratory: DENIES: Cough Cardiovascular: DENIES: Chest pain Gastrointestinal: COMPLAINS OF: Nausea, DENIES: Abdominal pain Genitourinary: DENIES: Urinary frequency Musculoskeletal: COMPLAINS OF: Joint pain Integumentary: DENIES: Rash Hematologic/lymphatic: DENIES: Bruising Immunologic/allergic: DENIES: Eczema Neurologic: DENIES: Headache Psychiatric: COMPLAINS OF: Depression (history of depression, not taking medications), DENIES: Anxiety Past Family Social History Past Medical History Bipolar disorder with depression, alcohol dependence Past Surgical History denies Reported Medications denies Allergies: Coded Allergies: penicillin G (Verified Allergy, Severe, UNKNOWN, 05/16/17) Uncoded Allergies: SNAKI ANI VENOM (Allergy, Severe, UNKNOWN, 02/02/10) Active Ordered Medications Current Medications Medications (Trade) Dose Ordered Sig/Alexandre Route Start Time Stop Time Status Last Admin Sodium Chloride 1,000 ml @ 100 mls/hr Q10H IV 05/16/17 13:00 05/16/17 13:14 (NS Flush) 2 ml UNSCH PRN IV FLUSH 05/16/17 11:30 (NS Flush) 2 ml BID IV FLUSH 05/16/17 21:00 (Tylenol) 650 mg Q4H PRN PO 05/16/17 11:30 (Zofran Inj) 4 mg Q6H PRN IVP 05/16/17 11:30 (Heparin Inj) 5,000 units Q8H SQ 05/16/17 14:00 05/16/17 13:52 (Narcan Inj) 0.4 mg UNSCH PRN IV PUSH 05/16/17 11:30 (Chhaya-Colace) 1 tab BID PO 05/16/17 21:00 (Milk Of Magnesia Liq) 30 ml Q12H PRN PO 05/16/17 11:30 (Senokot) 17.2 mg Q12H PRN PO 05/16/17 11:30 (Dulcolax Supp) 10 mg DAILY PRN RECTAL 05/16/17 11:30 (Lactulose Liq) 30 ml DAILY PRN PO 05/16/17 11:30 (Dilaudid Pf Inj) 1 mg Q4H PRN IV PUSH 05/16/17 11:30 05/16/17 11:50 Multivitamins 10 ml/Folic Acid 1 mg/Sodium Chloride 510.2 ml @ 125 mls/hr Q24H IV 05/16/17 15:00 05/21/17 14:59 (Vitamin B1) 100 mg DAILY PO 05/20/17 09:00 (Romazicon Inj) 0.2 mg Q1M PRN IV PUSH 05/16/17 12:00 (Ativan) 1 mg Q4H PRN PO 05/16/17 12:00 (Ativan Inj) 1 mg Q4H PRN IV PUSH 05/16/17 12:00 05/16/17 13:53 (Ativan) 2 mg Q2H PRN PO 05/16/17 12:00 (Ativan Inj) 2 mg Q2H PRN IV PUSH 05/16/17 12:00 (Ativan Inj) 2 mg Q1H PRN IV PUSH 05/16/17 12:00 (Ativan Inj) 2 mg Q15M PRN IV PUSH 05/16/17 12:00 Thiamine HCl 100 mg/Sodium Chloride 101 ml @ 100 mls/hr Q24H IV 05/17/17 12:00 05/19/17 13:01 (Morphine Inj) 2 mg Q4H PRN IV PUSH 05/16/17 14:00 (Morphine Inj) 4 mg Q4H PRN IV PUSH 05/16/17 14:00 Reported Meds & Active Scripts Active No Active Prescriptions or Reported Medications Family History mental illness Social History Positive alcohol and tobacco use. He states he has been unable to afford his psych meds. Physical Exam Vital Signs Vital Signs Date Time Temp Pulse Resp B/P (MAP) Pulse Ox O2 Delivery O2 Flow Rate FiO2 05/16/17 09:23 98 Nasal Cannula 3.00 05/16/17 09:22 98 3.00 05/16/17 07:29 99.4 112 19 153/94 (113) 96 Room Air Physical Exam The patient appeared well nourished and normally developed. Vital signs as documented. Head exam is unremarkable. No scleral icterus. Neck is without jugular venous distension. Nonlabored respirations. Regular rate. Abdomen is soft, nontender. Left lower extremity: Currently in splint after being irrigated by the emergency department. Positive EHL and FHL. Sensation intact distally. Brisk cap refill. No tenderness to palpation about the knee. Negative log roll. Bilateral upper extremities and right lower extremity without tenderness palpation, erythema, or ecchymosis. Full active range of motion and strength. Dorsalis pedis and radial pulses palpable. Sensation intact. Laboratory Laboratory Tests Test 05/16/17 07:40 05/16/17 13:10 White Blood Count 8.7 Red Blood Count 4.70 Hemoglobin 15.1 Bedside Hemoglobin 15.6 Hematocrit 43.4 Bedside Hematocrit 46.0 Mean Corpuscular Volume 92.4 Mean Corpuscular Hemoglobin 32.2 Mean Corpuscular Hemoglobin Concent 34.9 Red Cell Distribution Width 14.1 Platelet Count 164 Mean Platelet Volume 8.5 Neutrophils (%) (Auto) 73.8 Lymphocytes (%) (Auto) 17.3 Monocytes (%) (Auto) 8.5 Eosinophils (%) (Auto) 0.0 Basophils (%) (Auto) 0.4 Neutrophils # (Auto) 6.4 Lymphocytes # (Auto) 1.5 Monocytes # (Auto) 0.7 Eosinophils # (Auto) 0.0 Basophils # (Auto) 0.0 CBC Comment DIFF FINAL Differential Comment Prothrombin Time 11.9 Prothromb Time International Ratio 1.1 Activated Partial Thromboplast Time 23.1 Bedside Sodium 139 Bedside Potassium 2.8 Bedside Chloride 96 Bedside Blood Urea Nitrogen 7 Bedside Creatinine 1.3 Bedside Glucose 176 Ethyl Alcohol Level 300 Urine Color YELLOW Urine Turbidity CLEAR Urine pH 6.0 Urine Specific [place] GREATER THAN 1.050 Urine Protein 30 Urine Glucose (UA) NEG Urine Ketones 10 Urine Occult Blood NEG Urine Nitrite NEG Urine Bilirubin NEG Urine Urobilinogen LESS THAN 2.0 Urine Leukocyte Esterase NEG Urine RBC LESS THAN 1 Urine WBC LESS THAN 1 Urine Mucus FEW Microscopic Urinalysis Comment CATH-CULT NOT IND Urine Opiates Screen POS Urine Barbiturates Screen NEG Urine Amphetamines Screen NEG Urine Benzodiazepines Screen NEG Urine Cocaine Screen NEG Urine Cannabinoids Screen NEG Result Diagram: 05/16/17 0740 Imaging left ankle radiographs demonstrates a distal fibula fracture with significant displacement and dislocation of the tibiotalar joint. no medial malleolus fracture is noted. Assessment & Plan Problem List: (1) Open ankle fracture ICD Codes: S82.899B - Other fracture of unspecified lower leg, initial encounter for open fracture type I or II Status: Acute Qualifiers: Qualified Codes: S82.891C - Other fracture of right lower leg, initial encounter for open fracture type IIIA, IIIB, or IIIC Assessment and Plan 47-year-old male with history of mental illness and alcohol dependence with open left ligamentous bimalleolar ankle fracture. Risks benefits and alternatives in regards to the patient's treatment were discussed with the patient. Given he does have an open fracture that is unstable, I have recommended operative intervention in the form of irrigation and debridement and open reduction internal fixation of his left ankle. I did discuss with the patient that given he has no fracture on the medial aspect of his ankle but he does have clear ligamentous injury, if his ankle remains unstable after I fix the lateral aspect he may require an external fixator, however I do believe this is unlikely. I did discuss with the patient that he will remain nonweightbearing postoperatively for several weeks. I expect the patient will remain admitted for at least one to 2 days postoperatively for IV antibiotics given his open injury. Patient has been given antibiotics on presentation and a tetanus booster due to his open injury. Patient is to remain nothing by mouth for planned surgery later today. Cora Herman MD May 16, 2017 14:07
[2017-05-16] MEDS ORDERED: GENTAMICIN SULFATE 80 MG/2 ML VIAL ONE (15:12)
[2017-05-16] MEDS: MULTIVITAMIN INJ 10 ML, FOLIC ACID INJ 1 MG in SODIUM CHLORID 0.9% 500 ML INJ 500 ML IV SCH (15:31)
[2017-05-16] MEDS ORDERED: HYDROmorphone HCL PF 2 MG/ML VIAL ONE (17:13)
[2017-05-16] MEDS ORDERED: ACETAMINOPHEN 1000 MG/100 ML 100 ML IV ONE (17:13)
[2017-05-16] MEDS ORDERED: DEXMEDETOMIDINE HCL 200 MCG/2 ML VIAL ONE (17:13)
[2017-05-16] MEDS ORDERED: ceFAZolin 2 GM PREMIX 50 ML ONE (17:29)
[2017-05-16] MEDS ORDERED: BUPIVACAINE/EPINEPHRINE 0.25% 50 ML VIAL ONE (18:22)
[2017-05-16] MEDS ORDERED: DO NOT ADM ANY ANTICOAGULANT DRUGS PRN (20:05)
[2017-05-16] MEDS ORDERED: *RESP: ALBUTEROL 2.5 MG/3 ML NEB (PRN) PERIprocedural Use ONLY NEB ONE (20:15)
--- NOTE | 2017-05-16 20:23 | HHI.PR ---
Immediate Post Op Note Procedure Date: May 16, 2017 Pre Op Diagnosis: Open left ligamentous bimalleolar ankle fracture dislocation Post Op Diagnosis: as above Surgeon: Cora Herman Student Teacher(s): technical assistant Procedure: I&D, ORIF left ankle fracture Complications: none Specimen(s) removed: none Estimated blood loss: minimal Anesthesia: General Drains: None Tourniquet time (min at mmHg) 1hr Patient to: PACU Patient Condition: Good Implant/Devices: SEE IMPLANT LOG (if applicable) Date/Time of Procedure: SEE SURGICAL CARE RECORD Cora Herman MD May 16, 2017 20:23
[2017-05-16] MEDS ORDERED: Post-op Orders (for Pharmacy) MISC XX ONE (20:30)
[2017-05-16] MEDS ORDERED: *LABETALOL HCL 100 MG/20 ML VIAL PERIprocedural Use ONLY ONE (20:31)
[2017-05-16] MEDS ORDERED: DOCUSATE SODIUM 50 MG/SENNA 8.6 MG TAB PO SCH (21:00)
[2017-05-16] MEDS ORDERED: SODIUM CHLORIDE 0.9% FLUSH 10 ML FLUSH IV FLUSH SCH (21:00)
[2017-05-16] MEDS: SODIUM CHLORIDE 0.9% FLUSH 10 ML FLUSH IV FLUSH SCH (22:09)
[2017-05-16] MEDS: DOCUSATE SODIUM 50 MG/SENNA 8.6 MG TAB PO SCH (22:09)
[2017-05-16] MEDS: ceFAZolin 2 GM PREMIX 50 ML IV SCH (22:10)
[2017-05-16] MEDS: MORPHINE SULFATE 4 MG/ML INJ IV PUSH PRN (22:18)
--- NOTE | 2017-05-16 22:59 | RADRPT ---
EXAM DATE/TIME: 05/16/2017 19:07 [facility] COMPARISON: ANKLE LEFT LIMITED (AP&LAT), May 16, 2017, 9:57. INDICATIONS : Ankle fracture- ORIF. MEDICAL HISTORY : None. SURGICAL HISTORY : None. ENCOUNTER: Subsequent ACUITY: 1 day PAIN SCORE: Non-responsive. LOCATION: Left Ankle. FINDINGS: 5 magnified C-arm spot views are centered over the ankle joint and labeled left. Orthopedic plate is seen involving the lateral cortex of the distal fibular metadiaphysis. Multiple anchoring screws. Goo d alignment. Soft tissue defect overlying the medial malleolus. CONCLUSION: Limited images as detailed above. Brice Regalado Jr., MD on May 16, 2017 at 22:57 Board Certified Radiologist. This report was verified electronically.
[2017-05-17] VITALS (7 sets, daily range): BP systolic 129–169; BP diastolic 92–109; PULSE 102–112; RESP 16–18; TEMP 96.9–98.9; O2SAT 93–98
[2017-05-17] MEDS: LORazepam 1 MG TAB PO PRN ×4 (01:45→17:39)
[2017-05-17] MEDS ORDERED: cloNIDine HCL 0.1 MG TAB PO ONE (02:15)
[2017-05-17] MEDS: MORPHINE SULFATE 4 MG/ML INJ IV PUSH PRN ×2 (03:08→07:29)
[2017-05-17] MEDS: ceFAZolin 2 GM PREMIX 50 ML IV SCH ×2 (03:09→09:45)
[2017-05-17] MEDS: HYDROmorphone HCL PF 1 MG/ML VIAL IV PUSH PRN ×4 (04:39→17:39)
--- NOTE | 2017-05-17 05:09 | EKG ---
Date Performed: 05/16/2017 Time Performed: 17:04:43 PTAGE: 47 years EKG: Sinus rhythm WITH OCCASIONAL SUPRAVENTRICULAR PREMATURE COMPLEXES LOW QRS VOLTAGE IN PRECORDIAL LEADS INFERIOR MY OCARDIAL INFARCTION , PROBABLY OLD ABNORMAL ECG NO PREVIOUS TRACING DOCTOR: Gibson Soto Interpretating Date/Time 05/17/2017 05:04:41
[2017-05-17] MEDS: SODIUM CHLOR 0.9% 1000 ML INJ 1,000 ML IV SCH ×2 (05:53→20:41)
[2017-05-17 06:58] LABS: AUTOMATED NEUTROPHIL # 4.9 TH/MM3 (1.8-7.7); BASOPHIL % 0.2 % (0.0-2.0); EOSINOPHIL % 0.1 % (0.0-4.0); HEMATOCRIT 40.3 % (39.0-51.0); HEMO FLAGS DIFF FINAL; LYMPH % 14.2 % (9.0-44.0); LYMPHOCYTE # 0.9 TH/MM3 (1.0-4.8); MEAN CELL VOLUME 94.3 FL (80.0-100.0); MEAN CORPUSCULAR HEMOGLOBIN 31.9 PG (27.0-34.0); MEAN CORPUSCULAR HGB CONC 33.8 % (32.0-36.0); MONO % 10.3 % (0.0-8.0); NEUT % 75.2 % (16.0-70.0); PLATELET COUNT 109 TH/MM3 (150-450); RED BLOOD COUNT 4.28 MIL/MM3 (4.50-5.90); RED CELL DISTRIBUTION WIDTH 15.3 % (11.6-17.2); WHITE BLOOD COUNT 6.6 TH/MM3 (4.0-11.0)
[2017-05-17 07:02] LABS: ANION GAP 10 MEQ/L (5-15); AST (GOT) 92 U/L (15-37); BICARBONATE 24.9 MEQ/L (21.0-32.0); BLOOD UREA NITROGEN 6 MG/DL (7-18); CHLORIDE 99 MEQ/L (98-107); GLOMERULAR FILTRATION RATE 73 ML/MIN (>89); POTASSIUM 3.5 MEQ/L (3.5-5.1); SODIUM (NA) 134 MEQ/L (136-145)
--- NOTE | 2017-05-17 07:02 | PD.ORT.PN ---
Subjective Subjective Remarks Reports L ankle, otherwise doing well. Denies CP, SOB, AP, N/V Objective Vitals Vital Signs Date Time Temp Pulse Resp B/P (MAP) Pulse Ox O2 Delivery O2 Flow Rate FiO2 05/17/17 05:09 18 05/17/17 04:04 98.6 102 18 154/99 (117) 98 05/17/17 03:13 18 05/17/17 00:00 169/104 (125) 05/16/17 23:15 98.3 90 18 169/109 (129) 98 05/16/17 21:05 98.6 86 18 154/91 (112) 95 05/16/17 20:45 97.8 84 16 155/89 (111) 94 Nasal Cannula 3 05/16/17 20:40 88 16 160/95 (116) 93 Nasal Cannula 3 05/16/17 20:30 95 15 169/104 (125) 92 Nasal Cannula 3 05/16/17 20:20 97 Nasal Cannula 3.00 05/16/17 20:15 100 15 158/91 (113) 92 Nasal Cannula 3 05/16/17 20:10 102 15 158/89 (112) 95 Simple Mask 7 05/16/17 20:05 98.4 105 20 178/117 (137) 93 Simple Mask 7 05/16/17 17:09 97.7 105 16 171/98 (122) 96 05/16/17 15:23 05/16/17 14:07 99 13 138/95 (109) 94 Nasal Cannula 3.00 05/16/17 09:45 106 17 143/88 (106) 96 Nasal Cannula 3.00 05/16/17 09:23 98 Nasal Cannula 3.00 05/16/17 09:22 98 3.00 05/16/17 07:29 99.4 112 19 153/94 (113) 96 Room Air I/O 05/16/17 05/16/17 05/16/17 05/17/17 05/17/17 05/17/17 06:59 14:59 22:59 06:59 14:59 22:59 Intake Total 1290 ml 1530 ml Output Total 50 ml 300 ml Balance 1240 ml 1230 ml Intake Oral 240 ml 480 ml IV Total 50 ml 1050 ml Other 1000 ml Output Urine Total 300 ml Estimated Blood Loss 50 ml # Voids 0 # Bowel Movements 0 0 Result Diagram: 05/16/17739 Other Results Laboratory Tests Test 05/16/17 07:40 Prothromb Time International Ratio 1.1 RATIO Prothrombin Time 11.9 SEC (9.8-11.6) Imaging Last [address] 05/16/17718 Signed Impressions: Service Date/Time: Tuesday, May 16, 2017 08:23 - CONCLUSION: No acute intracranial disease. Pepe Samuels MD Chest CT 05/16/17718 Signed Impressions: Service Date/Time: Tuesday, May 16, 2017 08:28 - CONCLUSION: 1. No acute thoracic injury. 2. No consolidation or pneumothorax. 3. Gynecomastia and severe hepatic steatosis. Pepe Samuels MD Cervical Spine CT 05/16/17718 Signed Impressions: Service Date/Time: Tuesday, May 16, 2017 08:23 - CONCLUSION: No fracture or subluxation. Pepe Samuels MD Abdomen/Pelvis CT 05/16/17718 Signed Impressions: Service Date/Time: Tuesday, May 16, 2017 08:28 - CONCLUSION: 1. Severe hepatic steatosis. 2. No abdominal visceral injury. Pepe Samuels MD Objective Remarks Awake, alert, appears anxious but states he is ok LLE: splint in place. +EHL and FHL. Sensation intact over toes. BCR Assessment & Plan Ortho Post Op Day #: 1 Problem List: (1) Open ankle fracture ICD Codes: S82.899B - Other fracture of unspecified lower leg, initial encounter for open fracture type I or II Status: Acute Qualifiers: Qualified Codes: S82.891C - Other fracture of right lower leg, initial encounter for open fracture type IIIA, IIIB, or IIIC Assessment and Plan 47-year-old male with history of mental illness and alcohol dependence with open left ligamentous bimalleolar ankle fracture, POD#1 1. NWB LLE in splint. Elevate and ice. 2. PT for mobilization 3. Pain control 4. Ok for discharge after completes antibiotics for open fracture, likely tomorrow. Cora Herman MD May 17, 2017 07:02
[2017-05-17 07:03] LABS: ALT (GPT) 103 U/L (12-78)
[2017-05-17 07:06] LABS: ALKALINE PHOSPHATASE 122 U/L (45-117); TOTAL BILIRUBIN ADULT 1.9 MG/DL (0.2-1.0)
[2017-05-17] MEDS: DOCUSATE SODIUM 50 MG/SENNA 8.6 MG TAB PO SCH ×2 (08:25→20:41)
[2017-05-17] MEDS: SODIUM CHLORIDE 0.9% FLUSH 10 ML FLUSH IV FLUSH SCH ×2 (08:31→20:44)
--- NOTE | 2017-05-17 09:23 | HHI.PR ---
Subjective Remarks This is a pleasant 47 y/o Male with history of Alcohol abuse, presents to [place] after a fall and left ankle pain. Patient states that he fell in the kitchen however is unable to give any further details as he does not remember and intoxicated with alcohol. As per Ed physician report, patient's mother told EMS patient passed out but patient does not remember. Complains of some rib pain and left ankle pain. Patient seen in ED found to have an open fracture of left ankle. Fracture was reduced by ED physician and placed on a cast. 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 Objective Vital Signs Date Time Temp Pulse Resp B/P (MAP) Pulse Ox O2 Delivery O2 Flow Rate FiO2 05/17/17 05:09 18 05/17/17 04:04 98.6 102 18 154/99 (117) 98 05/17/17 03:13 18 05/17/17 00:00 169/104 (125) 05/16/17 23:15 98.3 90 18 169/109 (129) 98 05/16/17 21:05 98.6 86 18 154/91 (112) 95 05/16/17 20:45 97.8 84 16 155/89 (111) 94 Nasal Cannula 3 05/16/17 20:40 88 16 160/95 (116) 93 Nasal Cannula 3 05/16/17 20:30 95 15 169/104 (125) 92 Nasal Cannula 3 05/16/17 20:20 97 Nasal Cannula 3.00 05/16/17 20:15 100 15 158/91 (113) 92 Nasal Cannula 3 05/16/17 20:10 102 15 158/89 (112) 95 Simple Mask 7 05/16/17 20:05 98.4 105 20 178/117 (137) 93 Simple Mask 7 05/16/17 17:09 97.7 105 16 171/98 (122) 96 05/16/17 15:23 05/16/17 14:07 99 13 138/95 (109) 94 Nasal Cannula 3.00 05/16/17 09:45 106 17 143/88 (106) 96 Nasal Cannula 3.00 05/16/17 09:23 98 Nasal Cannula 3.00 05/16/17 09:22 98 3.00 I/O 05/16/17 05/16/17 05/16/17 05/17/17 05/17/17 05/17/17 07:00 15:00 23:00 07:00 15:00 23:00 Intake Total 1290 ml 1530 ml Output Total 50 ml 500 ml Balance 1240 ml 1030 ml Intake Oral 240 ml 480 ml IV Total 50 ml 1050 ml Other 1000 ml Output Urine Total 500 ml Estimated Blood Loss 50 ml # Voids 0 # Bowel Movements 0 0 Result Diagram: 05/17/1761805/17/17618 Imaging Last Impressions Head CT 05/16/17718 Signed Impressions: Service Date/Time: Tuesday, May 16, 2017 08:23 - CONCLUSION: No acute intracranial disease. Pepe Samuels MD Chest CT 05/16/17718 Signed Impressions: Service Date/Time: Tuesday, May 16, 2017 08:28 - CONCLUSION: 1. No acute thoracic injury. 2. No consolidation or pneumothorax. 3. Gynecomastia and severe hepatic steatosis. Pepe Samuels MD Cervical Spine CT 05/16/17718 Signed Impressions: Service Date/Time: Tuesday, May 16, 2017 08:23 - CONCLUSION: No fracture or subluxation. Pepe Samuels MD Abdomen/Pelvis CT 05/16/17718 Signed Impressions: Service Date/Time: Tuesday, May 16, 2017 08:28 - CONCLUSION: 1. Severe hepatic steatosis. 2. No abdominal visceral injury. Pepe Samuels MD Ankle X-Ray 05/16/17 0000 Signed Impressions: Service Date/Time: Tuesday, May 16, 2017 19:07 - CONCLUSION: Limited images as detailed above. Brice Regalado Jr., MD Procedures I&D, ORIF left ankle fracture 05/16/17 Other Results Laboratory Tests Test 05/16/17 07:40 05/16/17 13:10 05/17/17 06:19 Bedside Hemoglobin 15.6 G/DL Bedside Hematocrit 46.0 % Prothrombin Time 11.9 SEC Prothromb Time International Ratio 1.1 RATIO Activated Partial Thromboplast Time 23.1 SEC Bedside Sodium 139 MMOL/L Bedside Potassium 2.8 MMOL/L Bedside Chloride 96 MMOL/L Bedside Blood Urea Nitrogen 7 MG/DL Bedside Creatinine 1.3 MG/DL Bedside Glucose 176 MG/DL Ethyl Alcohol Level 300 MG/DL Urine Color YELLOW Urine Turbidity CLEAR Urine pH 6.0 Urine Specific [place] GREATER THAN 1.050 Urine Protein 30 mg/dL Urine Glucose (UA) NEG mg/dL Urine Ketones 10 mg/dL Urine Occult Blood NEG Urine Nitrite NEG Urine Bilirubin NEG Urine Urobilinogen LESS THAN 2.0 MG/DL Urine Leukocyte Esterase NEG Urine RBC LESS THAN 1 /hpf Urine WBC LESS THAN 1 /hpf Urine Mucus FEW /lpf Microscopic Urinalysis Comment CATH-CULT NOT IND Urine Opiates Screen POS Urine Barbiturates Screen NEG Urine Amphetamines Screen NEG Urine Benzodiazepines Screen NEG Urine Cocaine Screen NEG Urine Cannabinoids Screen NEG White Blood Count 6.6 TH/MM3 Red Blood Count 4.28 MIL/MM3 Hemoglobin 13.6 GM/DL Hematocrit 40.3 % Mean Corpuscular Volume 94.3 FL Mean Corpuscular Hemoglobin 31.9 PG Mean Corpuscular Hemoglobin Concent 33.8 % Red Cell Distribution Width 15.3 % Platelet Count 109 TH/MM3 Mean Platelet Volume 8.9 FL Neutrophils (%) (Auto) 75.2 % Lymphocytes (%) (Auto) 14.2 % Monocytes (%) (Auto) 10.3 % Eosinophils (%) (Auto) 0.1 % Basophils (%) (Auto) 0.2 % Neutrophils # (Auto) 4.9 TH/MM3 Lymphocytes # (Auto) 0.9 TH/MM3 Monocytes # (Auto) 0.7 TH/MM3 Eosinophils # (Auto) 0.0 TH/MM3 Basophils # (Auto) 0.0 TH/MM3 CBC Comment DIFF FINAL Differential Comment Blood Urea Nitrogen 6 MG/DL Creatinine 1.08 MG/DL Random Glucose 129 MG/DL Total Protein 7.6 GM/DL Albumin 3.3 GM/DL Calcium Level 8.1 MG/DL Alkaline Phosphatase 122 U/L Aspartate Amino Transf (AST/SGOT) 92 U/L Alanine Aminotransferase (ALT/SGPT) 103 U/L Total Bilirubin 1.9 MG/DL Sodium Level 134 MEQ/L Potassium Level 3.5 MEQ/L Chloride Level 99 MEQ/L Carbon Dioxide Level 24.9 MEQ/L Anion Gap 10 MEQ/L Estimat Glomerular Filtration Rate 73 ML/MIN Objective Remarks GENERAL: Well-developed patient, in no apparent distress. Obesity. SKIN: No rashes, has Multiple Tattoo. HEAD: Atraumatic. Normocephalic. No temporal or scalp tenderness. EYES: Pupils equal round and reactive. Extraocular motions intact. No scleral icterus. No injection or drainage. ENT: Nose without bleeding, purulent drainage or septal hematoma. Throat without erythema, tonsillar hypertrophy or exudate. Uvula midline. Airway patent. NECK: Trachea midline. No JVD or lymphadenopathy. Supple, nontender, no meningeal signs. CARDIOVASCULAR: Regular rate and rhythm without murmurs, gallops, or rubs. RESPIRATORY: Clear to auscultation. Breath sounds equal bilaterally. No wheezes , rales, or rhonchi. GASTROINTESTINAL: Abdomen soft, non-tender, nondistended. No hepato-splenomegaly , or palpable masses. No guarding. MUSCULOSKELETAL: Extremities without clubbing, cyanosis, has Orthotics on Left Leg. NEUROLOGICAL: Awake and alert. Cranial nerves II through XII intact. Medications and IVs Current Medications Medications (Trade) Dose Ordered Sig/Alexandre Route Start Time Stop Time Status Last Admin Sodium Chloride 1,000 ml @ 100 mls/hr Q10H IV 05/16/17 13:00 05/17/17 05:53 (Tylenol) 650 mg Q4H PRN PO 05/16/17 11:30 (Zofran Inj) 4 mg Q6H PRN IVP 05/16/17 11:30 (Narcan Inj) 0.4 mg UNSCH PRN IV PUSH 05/16/17 11:30 (Dilaudid Pf Inj) 1 mg Q4H PRN IV PUSH 05/16/17 11:30 05/17/17 08:28 Multivitamins 10 ml/Folic Acid 1 mg/Sodium Chloride 510.2 ml @ 125 mls/hr Q24H IV 05/16/17 15:00 05/21/17 14:59 05/16/17 15:31 (Vitamin B1) 100 mg DAILY PO 05/20/17 09:00 (Romazicon Inj) 0.2 mg Q1M PRN IV PUSH 05/16/17 12:00 (Ativan) 1 mg Q4H PRN PO 05/16/17 12:00 05/17/17 08:25 (Ativan Inj) 1 mg Q4H PRN IV PUSH 05/16/17 12:00 05/16/17 13:53 (Ativan) 2 mg Q2H PRN PO 05/16/17 12:00 (Ativan Inj) 2 mg Q2H PRN IV PUSH 05/16/17 12:00 (Ativan Inj) 2 mg Q1H PRN IV PUSH 05/16/17 12:00 (Ativan Inj) 2 mg Q15M PRN IV PUSH 05/16/17 12:00 Thiamine HCl 100 mg/Sodium Chloride 101 ml @ 100 mls/hr Q24H IV 05/17/17 12:00 05/19/17 13:01 (Morphine Inj) 2 mg Q4H PRN IV PUSH 05/16/17 14:00 (Morphine Inj) 4 mg Q4H PRN IV PUSH 05/16/17 14:00 05/17/17 07:29 (NS Flush) 2 ml UNSCH PRN IV FLUSH 05/16/17 20:30 (NS Flush) 2 ml BID IV FLUSH 05/16/17 21:00 Cefazolin Sodium/ Dextrose 50 ml @ 100 mls/hr Q6H IV 05/16/17 22:00 05/17/17 10:29 05/17/17 03:09 (Chhaya-Colace) 1 tab BID PO 05/16/17 21:00 05/17/17 08:25 (Milk Of Magnesia Liq) 30 ml Q12H PRN PO 05/16/17 20:30 (Senokot) 17.2 mg Q12H PRN PO 05/16/17 20:30 (Dulcolax Supp) 10 mg DAILY PRN RECTAL 05/16/17 20:30 (Lactulose Liq) 30 ml DAILY PRN PO 05/16/17 20:30 Miscellaneous Information ALL NURSING DEPARTME... UNSCH PRN .XX 05/16/17 20:05 05/17/17 20:04 (Heparin Inj) 5,000 units Q8H SQ 05/17/17 22:00 A/P Assessment and Plan 1. Fall with secondary with Diagnosis of Open left ligamentous bimalleolar ankle fracture dislocation status post I&D, ORIF left ankle fracture has Orthotics in place on Left leg 2. Alcohol Intoxication, in a patient with Alcohol Dependence with Possible Alcohol withdrawal on CIWA protocol. No signs of alcohol withdrawal. 3. Electrolyte derangement replaced. Consult Wig Stylist for Discharge Purposes. DVT prophylaxis Heparin. Discharge Planning Awaiting final by Orthopedic Surgery and Wig Stylist for discharge. Tavares Mares MD May 17, 2017 09:23
[2017-05-17] MEDS ORDERED: POTASSIUM CHLORIDE 20 MEQ CONTROLLED RELEASE TAB PO ONE (09:45)
[2017-05-17] MEDS ORDERED: WALKER WHEELS/F1 MIS (10:09)
[2017-05-17 11:16] LABS: HDL CHOLESTEROL 62.7 MG/DL (40.0-60.0); LDL CHOLESTEROL 61 MG/DL (0-99)
[2017-05-17] MEDS: oxyCODONE/ACETAMINOPHEN 7.5 MG/325 MG TAB PO PRN ×3 (11:17→20:41)
[2017-05-17] MEDS: THIAMINE INJ 100 MG in SODIUM CHLORIDE 0.9% INJ 100 ML IV SCH (12:27)
[2017-05-17] MEDS: MULTIVITAMIN INJ 10 ML, FOLIC ACID INJ 1 MG in SODIUM CHLORID 0.9% 500 ML INJ 500 ML IV SCH (14:57)
[2017-05-17] MEDS: HEPARIN SODIUM - SQ 10,000 UNITS/ML VIAL SQ SCH (20:41)
[2017-05-18] VITALS (8 sets, daily range): BP systolic 136–159; BP diastolic 88–104; PULSE 92–107; RESP 17–18; TEMP 96.8–99.1; O2SAT 94–97
[2017-05-18] MEDS: HEPARIN SODIUM - SQ 10,000 UNITS/ML VIAL SQ SCH ×3 (06:09→21:30)
[2017-05-18] MEDS: SODIUM CHLOR 0.9% 1000 ML INJ 1,000 ML IV SCH (06:09)
[2017-05-18] MEDS: oxyCODONE/ACETAMINOPHEN 7.5 MG/325 MG TAB PO PRN ×4 (06:19→21:29)
--- NOTE | 2017-05-18 06:40 | PD.ORT.PN ---
Subjective Subjective Remarks POD 2 s/p ORIF left ankle doing well. states pain in ankle. patient went into DTs yesterday Objective Vitals Vital Signs Date Time Temp Pulse Resp B/P (MAP) Pulse Ox O2 Delivery O2 Flow Rate FiO2 05/18/17 05:09 Room Air 05/18/17 03:55 98.5 104 17 147/104 (118) 96 05/18/17 00:30 18 05/18/17 00:06 98.8 107 18 150/93 (112) 97 05/17/17 21:26 18 05/17/17 19:41 110 05/17/17 19:40 98.9 112 18 129/109 (116) 96 05/17/17 16:00 98.2 112 16 137/92 (107) 97 05/17/17 12:00 96.9 106 16 155/96 (115) 93 05/17/17 08:00 98.7 109 18 164/104 (124) 94 I/O 05/17/17 05/17/17 05/17/17 05/18/17 05/18/17 05/18/17 07:00 15:00 23:00 07:00 15:00 23:00 Intake Total 1530 ml 751 ml 2240.2 ml 480 ml Output Total 500 ml 950 ml 400 ml 800 ml Balance 1030 ml -199 ml 1840.2 ml -320 ml Intake Oral 480 ml 600 ml 480 ml 480 ml IV Total 1050 ml 151 ml 1760.2 ml Output Urine Total 500 ml 950 ml 400 ml 800 ml # Bowel Movements 0 0 0 0 Result Diagram: 05/17/1761805/17/17618 Imaging Last [address] 05/16/17718 Signed Impressions: Service Date/Time: Tuesday, May 16, 2017 08:23 - CONCLUSION: No acute intracranial disease. Pepe Samuels MD Chest CT 05/16/17718 Signed Impressions: Service Date/Time: Tuesday, May 16, 2017 08:28 - CONCLUSION: 1. No acute thoracic injury. 2. No consolidation or pneumothorax. 3. Gynecomastia and severe hepatic steatosis. Pepe Samuels MD Cervical Spine CT 05/16/17718 Signed Impressions: Service Date/Time: Tuesday, May 16, 2017 08:23 - CONCLUSION: No fracture or subluxation. Pepe Samuels MD Abdomen/Pelvis CT 05/16/17 0719 Signed Impressions: Service Date/Time: Tuesday, May 16, 2017 08:28 - CONCLUSION: 1. Severe hepatic steatosis. 2. No abdominal visceral injury. Pepe Samuels MD Objective Remarks Awake, alert, appears anxious but states he is ok LLE: splint in place. +EHL and FHL. Sensation intact over toes. BCR Assessment & Plan Problem List: (1) Open ankle fracture ICD Codes: S82.899B - Other fracture of unspecified lower leg, initial encounter for open fracture type I or II Status: Acute Qualifiers: Qualified Codes: S82.891C - Other fracture of right lower leg, initial encounter for open fracture type IIIA, IIIB, or IIIC Assessment and Plan 47-year-old male with history of mental illness and alcohol dependence with open left ligamentous bimalleolar ankle fracture, POD#2 1. NWB LLE in splint. Elevate and ice. 2. PT for mobilization 3. Pain control 4. Ok for discharge after completes antibiotics for open fracture 5. f/u with Dr Herman in 2 weeks Moreno Calero May 18, 2017 06:40
[2017-05-18] MEDS ORDERED: HYDR-3580 PO (07:04)
[2017-05-18] MEDS ORDERED: WALKER/ADULT/FO1 MIS (07:04)
[2017-05-18] MEDS: DOCUSATE SODIUM 50 MG/SENNA 8.6 MG TAB PO SCH ×2 (08:33→21:29)
[2017-05-18] MEDS: LORazepam 1 MG TAB PO PRN (08:33)
[2017-05-18] MEDS: HYDROmorphone HCL PF 1 MG/ML VIAL IV PUSH PRN ×2 (08:37)
[2017-05-18] MEDS: SODIUM CHLORIDE 0.9% FLUSH 10 ML FLUSH IV FLUSH SCH ×2 (08:38→21:29)
[2017-05-18] MEDS: MAGNESIUM SULFATE 1 GM PREMIX 100 ML IV SCH ×2 (10:28→11:58)
--- NOTE | 2017-05-18 11:12 | HHI.PR ---
Subjective Remarks This is a pleasant 47 y/o Male with history of Alcohol abuse, presents to [place] after a fall and left ankle pain. Patient states that he fell in the kitchen however is unable to give any further details as he does not remember and intoxicated with alcohol. As per Ed physician report, patient's mother told EMS patient passed out but patient does not remember. Complains of some rib pain and left ankle pain. Patient seen in ED found to have an open fracture of left ankle. Fracture was reduced by ED physician and placed on a cast. 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 05/18: stable recommended by Orthopedic surgery to complete antibiotics for one to two days IV due to Open fracture management protocol at this time no complaint, no nausea, vomit or diarrhea, encourage activity and will be discharge in am tomorrow. Objective Vital Signs Date Time Temp Pulse Resp B/P (MAP) Pulse Ox O2 Delivery O2 Flow Rate FiO2 05/18/17 08:00 99.1 106 18 153/96 (115) 94 05/18/17 07:25 18 05/18/17 05:09 Room Air 05/18/17 03:55 98.5 104 17 147/104 (118) 96 05/18/17 00:30 18 05/18/17 00:06 98.8 107 18 150/93 (112) 97 05/17/17 19:41 110 05/17/17 19:40 98.9 112 18 129/109 (116) 96 05/17/17 16:00 98.2 112 16 137/92 (107) 97 05/17/17 12:00 96.9 106 16 155/96 (115) 93 I/O 05/17/17 05/17/17 05/17/17 05/18/17 05/18/17 05/18/17 07:00 15:00 23:00 07:00 15:00 23:00 Intake Total 1530 ml 751 ml 2240.2 ml 480 ml Output Total 500 ml 950 ml 400 ml 800 ml Balance 1030 ml -199 ml 1840.2 ml -320 ml Intake Oral 480 ml 600 ml 480 ml 480 ml IV Total 1050 ml 151 ml 1760.2 ml Output Urine Total 500 ml 950 ml 400 ml 800 ml # Bowel Movements 0 0 0 0 Result Diagram: 05/17/1761805/17/17618 Imaging Last Impressions Head CT 05/16/17718 Signed Impressions: Service Date/Time: Tuesday, May 16, 2017 08:23 - CONCLUSION: No acute intracranial disease. Pepe Samuels MD Chest CT 05/16/17718 Signed Impressions: Service Date/Time: Tuesday, May 16, 2017 08:28 - CONCLUSION: 1. No acute thoracic injury. 2. No consolidation or pneumothorax. 3. Gynecomastia and severe hepatic steatosis. Pepe Samuels MD Cervical Spine CT 05/16/17718 Signed Impressions: Service Date/Time: Tuesday, May 16, 2017 08:23 - CONCLUSION: No fracture or subluxation. Pepe Samuels MD Abdomen/Pelvis CT 05/16/17718 Signed Impressions: Service Date/Time: Tuesday, May 16, 2017 08:28 - CONCLUSION: 1. Severe hepatic steatosis. 2. No abdominal visceral injury. Pepe Samuels MD Ankle X-Ray 05/16/17 0000 Signed Impressions: Service Date/Time: Tuesday, May 16, 2017 19:07 - CONCLUSION: Limited images as detailed above. Brice Regalado Jr., MD Procedures I&D, ORIF left ankle fracture 05/16/17 Other Results Laboratory Tests Test 05/16/17 07:40 05/16/17 13:10 05/17/17 06:19 05/17/17 09:54 Bedside Hemoglobin 15.6 G/DL Bedside Hematocrit 46.0 % Prothrombin Time 11.9 SEC Prothromb Time International Ratio 1.1 RATIO Activated Partial Thromboplast Time 23.1 SEC Bedside Sodium 139 MMOL/L Bedside Potassium 2.8 MMOL/L Bedside Chloride 96 MMOL/L Bedside Blood Urea Nitrogen 7 MG/DL Bedside Creatinine 1.3 MG/DL Bedside Glucose 176 MG/DL Ethyl Alcohol Level 300 MG/DL Urine Color YELLOW Urine Turbidity CLEAR Urine pH 6.0 Urine Specific [place] GREATER THAN 1.050 Urine Protein 30 mg/dL Urine Glucose (UA) NEG mg/dL Urine Ketones 10 mg/dL Urine Occult Blood NEG Urine Nitrite NEG Urine Bilirubin NEG Urine Urobilinogen LESS THAN 2.0 MG/DL Urine Leukocyte Esterase NEG Urine RBC LESS THAN 1 /hpf Urine WBC LESS THAN 1 /hpf Urine Mucus FEW /lpf Microscopic Urinalysis Comment CATH-CULT NOT IND Urine Opiates Screen POS Urine Barbiturates Screen NEG Urine Amphetamines Screen NEG Urine Benzodiazepines Screen NEG Urine Cocaine Screen NEG Urine Cannabinoids Screen NEG White Blood Count 6.6 TH/MM3 Red Blood Count 4.28 MIL/MM3 Hemoglobin 13.6 GM/DL Hematocrit 40.3 % Mean Corpuscular Volume 94.3 FL Mean Corpuscular Hemoglobin 31.9 PG Mean Corpuscular Hemoglobin Concent 33.8 % Red Cell Distribution Width 15.3 % Platelet Count 109 TH/MM3 Mean Platelet Volume 8.9 FL Neutrophils (%) (Auto) 75.2 % Lymphocytes (%) (Auto) 14.2 % Monocytes (%) (Auto) 10.3 % Eosinophils (%) (Auto) 0.1 % Basophils (%) (Auto) 0.2 % Neutrophils # (Auto) 4.9 TH/MM3 Lymphocytes # (Auto) 0.9 TH/MM3 Monocytes # (Auto) 0.7 TH/MM3 Eosinophils # (Auto) 0.0 TH/MM3 Basophils # (Auto) 0.0 TH/MM3 CBC Comment DIFF FINAL Differential Comment Blood Urea Nitrogen 6 MG/DL Creatinine 1.08 MG/DL Random Glucose 129 MG/DL Total Protein 7.6 GM/DL Albumin 3.3 GM/DL Calcium Level 8.1 MG/DL Alkaline Phosphatase 122 U/L Aspartate Amino Transf (AST/SGOT) 92 U/L Alanine Aminotransferase (ALT/SGPT) 103 U/L Total Bilirubin 1.9 MG/DL Sodium Level 134 MEQ/L Potassium Level 3.5 MEQ/L Chloride Level 99 MEQ/L Carbon Dioxide Level 24.9 MEQ/L Anion Gap 10 MEQ/L Estimat Glomerular Filtration Rate 73 ML/MIN Magnesium Level 1.4 MG/DL Triglycerides Level 101 MG/DL Cholesterol Level 144 MG/DL LDL Cholesterol 61 MG/DL HDL Cholesterol 62.7 MG/DL Cholesterol/HDL Ratio 2.29 RATIO Vitamin B12 Level 658 PG/ML Folate 8.7 NG/ML Objective Remarks GENERAL: Well-developed patient, in no apparent distress. Obesity. SKIN: No rashes, has Multiple Tattoo. HEAD: Atraumatic. Normocephalic. No temporal or scalp tenderness. EYES: Pupils equal round and reactive. Extraocular motions intact. No scleral icterus. No injection or drainage. ENT: Nose without bleeding, purulent drainage or septal hematoma. Throat without erythema, tonsillar hypertrophy or exudate. Uvula midline. Airway patent. NECK: Trachea midline. No JVD or lymphadenopathy. Supple, nontender, no meningeal signs. CARDIOVASCULAR: Regular rate and rhythm without murmurs, gallops, or rubs. RESPIRATORY: Clear to auscultation. Breath sounds equal bilaterally. No wheezes , rales, or rhonchi. GASTROINTESTINAL: Abdomen soft, non-tender, nondistended. No hepato-splenomegaly , or palpable masses. No guarding. MUSCULOSKELETAL: Extremities without clubbing, cyanosis, has Orthotics on Left Leg. NEUROLOGICAL: Awake and alert. Cranial nerves II through XII intact. Medications and IVs Current Medications Medications (Trade) Dose Ordered Sig/Alexandre Route Start Time Stop Time Status Last Admin Sodium Chloride 1,000 ml @ 100 mls/hr Q10H IV 05/16/17 13:00 05/18/17 06:09 (Tylenol) 650 mg Q4H PRN PO 05/16/17 11:30 (Zofran Inj) 4 mg Q6H PRN IVP 05/16/17 11:30 (Narcan Inj) 0.4 mg UNSCH PRN IV PUSH 05/16/17 11:30 (Dilaudid Pf Inj) 1 mg Q4H PRN IV PUSH 05/16/17 11:30 05/18/17 08:37 Multivitamins 10 ml/Folic Acid 1 mg/Sodium Chloride 510.2 ml @ 125 mls/hr Q24H IV 05/16/17 15:00 05/21/17 14:59 05/17/17 14:57 (Vitamin B1) 100 mg DAILY PO 05/20/17 09:00 (Romazicon Inj) 0.2 mg Q1M PRN IV PUSH 05/16/17 12:00 (Ativan) 1 mg Q4H PRN PO 05/16/17 12:00 05/18/17 08:33 (Ativan Inj) 1 mg Q4H PRN IV PUSH 05/16/17 12:00 05/16/17 13:53 (Ativan) 2 mg Q2H PRN PO 05/16/17 12:00 (Ativan Inj) 2 mg Q2H PRN IV PUSH 05/16/17 12:00 (Ativan Inj) 2 mg Q1H PRN IV PUSH 05/16/17 12:00 (Ativan Inj) 2 mg Q15M PRN IV PUSH 05/16/17 12:00 Thiamine HCl 100 mg/Sodium Chloride 101 ml @ 100 mls/hr Q24H IV 05/17/17 12:00 05/19/17 13:01 05/17/17 12:27 (Morphine Inj) 2 mg Q4H PRN IV PUSH 05/16/17 14:00 (NS Flush) 2 ml UNSCH PRN IV FLUSH 05/16/17 20:30 (NS Flush) 2 ml BID IV FLUSH 05/16/17 21:00 (Chhaya-Colace) 1 tab BID PO 05/16/17 21:00 05/18/17 08:33 (Milk Of Magnesia Liq) 30 ml Q12H PRN PO 05/16/17 20:30 (Senokot) 17.2 mg Q12H PRN PO 05/16/17 20:30 (Dulcolax Supp) 10 mg DAILY PRN RECTAL 05/16/17 20:30 (Lactulose Liq) 30 ml DAILY PRN PO 05/16/17 20:30 (Heparin Inj) 5,000 units Q8H SQ 05/17/17 22:00 05/18/17 06:09 (Percocet 7.5-325 Mg) 1 tab Q4H PRN PO 05/17/17 10:15 05/18/17 10:28 Magnesium Sulfate/ Dextrose 100 ml @ 100 mls/hr Q1H IV 05/18/17 10:00 05/18/17 11:59 05/18/17 10:28 A/P Assessment and Plan 1. Fall with secondary with Diagnosis of Open left ligamentous bimalleolar ankle fracture dislocation status post I&D, ORIF left ankle fracture has Orthotics in place on Left leg, as recommended by Orthopedic surgery to discharge once two days of antibiotics IV given, stopped Hydromorphone and continue Morphine for breakthrough pain and Oxycodone. 2. Alcohol Intoxication, in a patient with Alcohol Dependence with Possible Alcohol withdrawal on CIWA protocol. No signs of alcohol withdrawal. removed Ativan. 3. Electrolyte derangement replaced. Consult Shank Pinner for Discharge Purposes. DVT prophylaxis Heparin. Discharge Planning Expected for tomorrow in am. Tavares Mares MD May 18, 2017 11:12
[2017-05-18 11:59] LABS: HEMOGLOBIN A1a 1.1 %; HEMOGLOBIN A1b 1.4 %; HEMOGLOBIN F 0.2 %; HEMOGLOBIN LA1C 2.2 %; HEMOGLOBIN P3 3.5 %
[2017-05-18] MEDS: THIAMINE INJ 100 MG in SODIUM CHLORIDE 0.9% INJ 100 ML IV SCH (12:03)
[2017-05-18] MEDS: MORPHINE SULFATE 2 MG/ML INJ IV PUSH PRN ×3 (13:07→23:03)
[2017-05-18] MEDS: MULTIVITAMIN INJ 10 ML, FOLIC ACID INJ 1 MG in SODIUM CHLORID 0.9% 500 ML INJ 500 ML IV SCH (15:36)
[2017-05-19] MEDS: oxyCODONE/ACETAMINOPHEN 7.5 MG/325 MG TAB PO PRN ×3 (03:17→13:25)
[2017-05-19 04:35] VITALS: BP 153/85; PULSE 86; RESP 18; TEMP 97.9; O2SAT 96
[2017-05-19] MEDS: MORPHINE SULFATE 2 MG/ML INJ IV PUSH PRN (05:06)
[2017-05-19] MEDS: HEPARIN SODIUM - SQ 10,000 UNITS/ML VIAL SQ SCH (05:06)
--- NOTE | 2017-05-19 07:12 | PD.ORT.PN ---
Subjective Subjective Remarks Reports L ankle, otherwise doing well. Denies CP, SOB, AP, N/V Objective Vitals Vital Signs Date Time Temp Pulse Resp B/P (MAP) Pulse Ox O2 Delivery O2 Flow Rate FiO2 05/19/17 05:11 18 05/19/17 04:35 97.9 86 18 153/85 (107) 96 05/19/17 04:09 18 05/18/17 23:30 98.9 102 17 140/89 (106) 96 05/18/17 20:15 98 05/18/17 20:05 98.7 97 18 159/91 (113) 97 05/18/17 16:00 97.4 103 18 143/95 (111) 94 05/18/17 12:00 96.8 92 18 136/88 (104) 96 05/18/17 08:00 99.1 106 18 153/96 (115) 94 I/O 05/18/17 05/18/17 05/18/17 05/19/17 05/19/17 05/19/17 07:00 15:00 23:00 07:00 15:00 23:00 Intake Total 480 ml 1586 ml 1042 ml 480 ml Output Total 800 ml 700 ml 500 ml 840 ml Balance -320 ml 886 ml 542 ml -360 ml Intake Oral 480 ml 480 ml 240 ml 480 ml IV Total 1106 ml 802 ml Output Urine Total 800 ml 700 ml 500 ml 840 ml # Bowel Movements 0 0 0 Result Diagram: 05/17/1761805/17/17618 Imaging Last [address] 05/16/17718 Signed Impressions: Service Date/Time: Tuesday, May 16, 2017 08:23 - CONCLUSION: No acute intracranial disease. Pepe Samuels MD Chest CT 05/16/17718 Signed Impressions: Service Date/Time: Tuesday, May 16, 2017 08:28 - CONCLUSION: 1. No acute thoracic injury. 2. No consolidation or pneumothorax. 3. Gynecomastia and severe hepatic steatosis. Pepe Samuels MD Cervical Spine CT 05/16/17718 Signed Impressions: Service Date/Time: Tuesday, May 16, 2017 08:23 - CONCLUSION: No fracture or subluxation. Pepe Samuels MD Abdomen/Pelvis CT 05/16/17718 Signed Impressions: Service Date/Time: Tuesday, May 16, 2017 08:28 - CONCLUSION: 1. Severe hepatic steatosis. 2. No abdominal visceral injury. Pepe Samuels MD Objective Remarks Awake, alert, appears anxious LLE: splint in place. +EHL and FHL. Sensation intact over toes. BCR Assessment & Plan Ortho Post Op Day #: 3 Problem List: (1) Open ankle fracture ICD Codes: S82.899B - Other fracture of unspecified lower leg, initial encounter for open fracture type I or II Status: Acute Qualifiers: Qualified Codes: S82.891C - Other fracture of right lower leg, initial encounter for open fracture type IIIA, IIIB, or IIIC Assessment and Plan 47-year-old male with history of mental illness and alcohol dependence with open left ligamentous bimalleolar ankle fracture, POD#3 1. NWB LLE in splint. Elevate and ice. 2. PT for mobilization 3. Pain control 4. Ok for discharge 5. f/u with Dr Herman in 2 weeks Cora Herman MD May 19, 2017 07:12
[2017-05-19 08:00] VITALS: BP 134/78; PULSE 74; RESP 18; TEMP 98.1; O2SAT 97
--- NOTE | 2017-05-19 08:14 | HHI.PR ---
Subjective Remarks This is a pleasant 47 y/o Male with history of Alcohol abuse, presents to [facility] after a fall and left ankle pain. Patient states that he fell in the kitchen however is unable to give any further details as he does not remember and intoxicated with alcohol. As per Ed physician report, patient's mother told EMS patient passed out but patient does not remember. Complains of some rib pain and left ankle pain. Patient seen in ED found to have an open fracture of left ankle. Fracture was reduced by ED physician and placed on a cast. 05/17: with Diagnosis of Open left ligamentous bimalleolar ankle fracture dislocation status post I&D, ORIF left ankle fracture Stable seen in his bedroom, continue with Pain will switch to by mouth pain medicine, continue PT and awaiting final by Orthopedic surgery for discharge and care process manager, continue CIWA protocol, no signs of Alcohol Withdrawal. 05/18: stable recommended by Orthopedic surgery to complete antibiotics for one to two days IV due to Open fracture management protocol at this time no complaint, encourage activity and will be discharge in am tomorrow. 05/19: Stable in his bedroom, no complaint, no nausea, vomit or diarrhea, POD #3 , NWB LLE in splint, elevate and Ice, PT for Mobilization, Pain control, Okay to discharge and follow with Doctor Virgil in two weeks. Objective Vital Signs Date Time Temp Pulse Resp B/P (MAP) Pulse Ox O2 Delivery O2 Flow Rate FiO2 05/19/17 05:11 18 05/19/17 04:35 97.9 86 18 153/85 (107) 96 05/19/17 04:09 18 05/18/17 23:30 98.9 102 17 140/89 (106) 96 05/18/17 20:15 98 05/18/17 20:05 98.7 97 18 159/91 (113) 97 05/18/17 16:00 97.4 103 18 143/95 (111) 94 05/18/17 12:00 96.8 92 18 136/88 (104) 96 I/O 05/18/17 05/18/17 05/18/17 05/19/17 05/19/17 05/19/17 07:00 15:00 23:00 07:00 15:00 23:00 Intake Total 480 ml 1586 ml 1042 ml 480 ml Output Total 800 ml 700 ml 500 ml 840 ml Balance -320 ml 886 ml 542 ml -360 ml Intake Oral 480 ml 480 ml 240 ml 480 ml IV Total 1106 ml 802 ml Output Urine Total 800 ml 700 ml 500 ml 840 ml # Bowel Movements 0 0 0 Result Diagram: 05/17/1761805/17/17618 Imaging Last Impressions Head CT 05/16/17718 Signed Impressions: Service Date/Time: Tuesday, May 16, 2017 08:23 - CONCLUSION: No acute intracranial disease. Pepe Samuels MD Chest CT 05/16/17718 Signed Impressions: Service Date/Time: Tuesday, May 16, 2017 08:28 - CONCLUSION: 1. No acute thoracic injury. 2. No consolidation or pneumothorax. 3. Gynecomastia and severe hepatic steatosis. Pepe Samuels MD Cervical Spine CT 05/16/17718 Signed Impressions: Service Date/Time: Tuesday, May 16, 2017 08:23 - CONCLUSION: No fracture or subluxation. Pepe Samuels MD Abdomen/Pelvis CT 05/16/17718 Signed Impressions: Service Date/Time: Tuesday, May 16, 2017 08:28 - CONCLUSION: 1. Severe hepatic steatosis. 2. No abdominal visceral injury. Pepe Samuels MD Ankle X-Ray 05/16/17 0000 Signed Impressions: Service Date/Time: Tuesday, May 16, 2017 19:07 - CONCLUSION: Limited images as detailed above. Brice Regalado Jr., MD Procedures I&D, ORIF left ankle fracture 05/16/17 Other Results Laboratory Tests Test 05/16/17 07:40 05/16/17 13:10 05/17/17 06:19 05/17/17 09:54 Bedside Hemoglobin 15.6 G/DL Bedside Hematocrit 46.0 % Prothrombin Time 11.9 SEC Prothromb Time International Ratio 1.1 RATIO Activated Partial Thromboplast Time 23.1 SEC Bedside Sodium 139 MMOL/L Bedside Potassium 2.8 MMOL/L Bedside Chloride 96 MMOL/L Bedside Blood Urea Nitrogen 7 MG/DL Bedside Creatinine 1.3 MG/DL Bedside Glucose 176 MG/DL Ethyl Alcohol Level 300 MG/DL Urine Color YELLOW Urine Turbidity CLEAR Urine pH 6.0 Urine Specific [place] GREATER THAN 1.050 Urine Protein 30 mg/dL Urine Glucose (UA) NEG mg/dL Urine Ketones 10 mg/dL Urine Occult Blood NEG Urine Nitrite NEG Urine Bilirubin NEG Urine Urobilinogen LESS THAN 2.0 MG/DL Urine Leukocyte Esterase NEG Urine RBC LESS THAN 1 /hpf Urine WBC LESS THAN 1 /hpf Urine Mucus FEW /lpf Microscopic Urinalysis Comment CATH-CULT NOT IND Urine Opiates Screen POS Urine Barbiturates Screen NEG Urine Amphetamines Screen NEG Urine Benzodiazepines Screen NEG Urine Cocaine Screen NEG Urine Cannabinoids Screen NEG White Blood Count 6.6 TH/MM3 Red Blood Count 4.28 MIL/MM3 Hemoglobin 13.6 GM/DL Hematocrit 40.3 % Mean Corpuscular Volume 94.3 FL Mean Corpuscular Hemoglobin 31.9 PG Mean Corpuscular Hemoglobin Concent 33.8 % Red Cell Distribution Width 15.3 % Platelet Count 109 TH/MM3 Mean Platelet Volume 8.9 FL Neutrophils (%) (Auto) 75.2 % Lymphocytes (%) (Auto) 14.2 % Monocytes (%) (Auto) 10.3 % Eosinophils (%) (Auto) 0.1 % Basophils (%) (Auto) 0.2 % Neutrophils # (Auto) 4.9 TH/MM3 Lymphocytes # (Auto) 0.9 TH/MM3 Monocytes # (Auto) 0.7 TH/MM3 Eosinophils # (Auto) 0.0 TH/MM3 Basophils # (Auto) 0.0 TH/MM3 CBC Comment DIFF FINAL Differential Comment Blood Urea Nitrogen 6 MG/DL Creatinine 1.08 MG/DL Random Glucose 129 MG/DL Total Protein 7.6 GM/DL Albumin 3.3 GM/DL Calcium Level 8.1 MG/DL Alkaline Phosphatase 122 U/L Aspartate Amino Transf (AST/SGOT) 92 U/L Alanine Aminotransferase (ALT/SGPT) 103 U/L Total Bilirubin 1.9 MG/DL Sodium Level 134 MEQ/L Potassium Level 3.5 MEQ/L Chloride Level 99 MEQ/L Carbon Dioxide Level 24.9 MEQ/L Anion Gap 10 MEQ/L Estimat Glomerular Filtration Rate 73 ML/MIN Hemoglobin A1c 5.2 % Magnesium Level 1.4 MG/DL Triglycerides Level 101 MG/DL Cholesterol Level 144 MG/DL LDL Cholesterol 61 MG/DL HDL Cholesterol 62.7 MG/DL Cholesterol/HDL Ratio 2.29 RATIO Vitamin B12 Level 658 PG/ML Folate 8.7 NG/ML Objective Remarks GENERAL: Well-developed patient, in no apparent distress. Obesity. SKIN: No rashes, has Multiple Tattoo. HEAD: Atraumatic. Normocephalic. No temporal or scalp tenderness. EYES: Pupils equal round and reactive. Extraocular motions intact. No scleral icterus. No injection or drainage. ENT: Nose without bleeding, purulent drainage or septal hematoma. Throat without erythema, tonsillar hypertrophy or exudate. Uvula midline. Airway patent. NECK: Trachea midline. No JVD or lymphadenopathy. Supple, nontender, no meningeal signs. CARDIOVASCULAR: Regular rate and rhythm without murmurs, gallops, or rubs. RESPIRATORY: Clear to auscultation. Breath sounds equal bilaterally. No wheezes , rales, or rhonchi. GASTROINTESTINAL: Abdomen soft, non-tender, nondistended. No hepato-splenomegaly , or palpable masses. No guarding. MUSCULOSKELETAL: Extremities without clubbing, cyanosis, has Orthotics on Left Leg. NEUROLOGICAL: Awake and alert. Cranial nerves II through XII intact. Medications and IVs Current Medications Medications (Trade) Dose Ordered Sig/Alexandre Route Start Time Stop Time Status Last Admin (Tylenol) 650 mg Q4H PRN PO 05/16/17 11:30 (Zofran Inj) 4 mg Q6H PRN IVP 05/16/17 11:30 (Narcan Inj) 0.4 mg UNSCH PRN IV PUSH 05/16/17 11:30 Multivitamins 10 ml/Folic Acid 1 mg/Sodium Chloride 510.2 ml @ 125 mls/hr Q24H IV 05/16/17 15:00 05/21/17 14:59 05/18/17 15:36 (Vitamin B1) 100 mg DAILY PO 05/20/17 09:00 (Romazicon Inj) 0.2 mg Q1M PRN IV PUSH 05/16/17 12:00 Thiamine HCl 100 mg/Sodium Chloride 101 ml @ 100 mls/hr Q24H IV 05/17/17 12:00 05/19/17 13:01 05/18/17 12:03 (Morphine Inj) 2 mg Q4H PRN IV PUSH 05/16/17 14:00 05/19/17 05:06 (NS Flush) 2 ml UNSCH PRN IV FLUSH 05/16/17 20:30 (NS Flush) 2 ml BID IV FLUSH 05/16/17 21:00 05/18/17 21:29 (Chhaya-Colace) 1 tab BID PO 05/16/17 21:00 05/18/17 21:29 (Milk Of Magnesia Liq) 30 ml Q12H PRN PO 05/16/17 20:30 (Senokot) 17.2 mg Q12H PRN PO 05/16/17 20:30 (Dulcolax Supp) 10 mg DAILY PRN RECTAL 05/16/17 20:30 (Lactulose Liq) 30 ml DAILY PRN PO 05/16/17 20:30 (Heparin Inj) 5,000 units Q8H SQ 05/17/17 22:00 05/19/17 05:06 (Percocet 7.5-325 Mg) 1 tab Q4H PRN PO 05/17/17 10:15 05/19/17 03:17 A/P Assessment and Plan 1. Fall with secondary with Diagnosis of Open left ligamentous bimalleolar ankle fracture dislocation status post I&D, ORIF left ankle fracture has Orthotics in place on Left leg, as recommended by Orthopedic surgery to discharge once two days of antibiotics IV given, today seen by his Primary Orthopedic grounds restoration specialist Doctor Cora Herman, recommended to discharge today, continue PT for ambulation, NWB on LLE, follow up in two weeks. 2. Alcohol Intoxication, in a patient with Alcohol Dependence with Possible Alcohol withdrawal on CIWA protocol. No signs of alcohol withdrawal. removed Ativan. stable no signs of withdrawal, continue Thiamin. 3. Electrolyte derangement replaced. Physical Therapy recommended to go to SNF the patient is Self pay awaiting final recommendations by care process manager for discharge may go home on [facility] for PT and Skilled nurse if not able to go to SNF. DVT prophylaxis Heparin. Discharge Planning Discharge to SNF now as recommended by PT specialist. Tavares Mares MD May 19, 2017 08:14
[2017-05-19] MEDS: DOCUSATE SODIUM 50 MG/SENNA 8.6 MG TAB PO SCH (09:53)
[2017-05-19] MEDS: SODIUM CHLORIDE 0.9% FLUSH 10 ML FLUSH IV FLUSH SCH (09:54)
[2017-05-19] MEDS ORDERED: GNP100TA3 PO (09:58)
[2017-05-19] MEDS ORDERED: MAGN400T2 PO (09:59)
--- NOTE | 2017-05-19 10:12 | HHI.DS ---
Discharge Summary Admission Date May 16, 2017 at 09:44 Discharge Date: May 19, 2017 Admitting Diagnosis open ankle fracture, alcohol dependence (1) Fall ICD Code: W19.XXXA - Unspecified fall, initial encounter Diagnosis: Principal Status: Acute (2) Open ankle fracture ICD Code: S82.899B - Other fracture of unspecified lower leg, initial encounter for open fracture type I or II Diagnosis: Principal Status: Acute (3) Alcohol intoxication ICD Code: F10.929 - Alcohol use, unspecified with intoxication, unspecified Diagnosis: Principal Status: Acute (4) Alcohol dependence ICD Code: F10.20 - Alcohol dependence, uncomplicated Diagnosis: Principal Status: Acute (5) Alcohol withdrawal ICD Code: F10.239 - Alcohol dependence with withdrawal, unspecified Diagnosis: Secondary (6) Hypokalemia ICD Code: E87.6 - Hypokalemia Diagnosis: Principal Procedures I&D, ORIF left ankle fracture 05/16/17 Brief History - From Admission 47 yo male with h/o of alcohol abuse but no significant past medical history presents to [facility] after a fall and left ankle pain. Patient states that he fell in the kitchen however is unable to give any further details as he does not remember and intoxicated with alcohol. As per Ed physician report, patient' s mother told EMS patient passed out but patient does not remember. Complains of some rib pain and left ankle pain. Patient seen in ED found to have an open fracture of left ankle. Fracture was reduced by ED physician and placed on a cast. Patient denies cp/sob, fevers, chills. C/o tremors in both upper extremities but denies ever having seizures or having withdrawal symptoms. Denies cough. CBC/BMP: 05/17/1761805/17/17618 Significant Findings Laboratory Tests Test 05/16/17 13:10 05/17/17 06:19 05/17/17 09:54 Urine Specific [place] GREATER THAN 1.050 Urine Protein 30 mg/dL (NEG-TRACE) Urine Ketones 10 mg/dL (NEG) Urine Mucus FEW /lpf (OCC) Urine Opiates Screen POS (NEG) Red Blood Count 4.28 MIL/MM3 (4.50-5.90) Platelet Count 109 TH/MM3 (150-450) Neutrophils (%) (Auto) 75.2 % (16.0-70.0) Monocytes (%) (Auto) 10.3 % (0.0-8.0) Lymphocytes # (Auto) 0.9 TH/MM3 (1.0-4.8) Blood Urea Nitrogen 6 MG/DL (7-18) Random Glucose 129 MG/DL (74-106) Albumin 3.3 GM/DL (3.4-5.0) Calcium Level 8.1 MG/DL (8.5-10.1) Alkaline Phosphatase 122 U/L (45-117) Aspartate Amino Transf (AST/SGOT) 92 U/L (15-37) Alanine Aminotransferase (ALT/SGPT) 103 U/L (12-78) Total Bilirubin 1.9 MG/DL (0.2-1.0) Sodium Level 134 MEQ/L (136-145) Estimat Glomerular Filtration Rate 73 ML/MIN (>89) Magnesium Level 1.4 MG/DL (1.5-2.5) HDL Cholesterol 62.7 MG/DL (40.0-60.0) Imaging Last Impressions Head CT 05/16/17718 Signed Impressions: Service Date/Time: Tuesday, May 16, 2017 08:23 - CONCLUSION: No acute intracranial disease. Pepe Samuels MD Chest CT 05/16/17718 Signed Impressions: Service Date/Time: Tuesday, May 16, 2017 08:28 - CONCLUSION: 1. No acute thoracic injury. 2. No consolidation or pneumothorax. 3. Gynecomastia and severe hepatic steatosis. Pepe Samuels MD Cervical Spine CT 05/16/17718 Signed Impressions: Service Date/Time: Tuesday, May 16, 2017 08:23 - CONCLUSION: No fracture or subluxation. Pepe Samuels MD Abdomen/Pelvis CT 05/16/17718 Signed Impressions: Service Date/Time: Tuesday, May 16, 2017 08:28 - CONCLUSION: 1. Severe hepatic steatosis. 2. No abdominal visceral injury. Pepe Samuels MD Ankle X-Ray 05/16/17 Signed Impressions: Service Date/Time: Tuesday, May 16, 2017 19:07 - CONCLUSION: Limited images as detailed above. Brice Regalado Jr., MD PE at Discharge GENERAL: Well-developed patient, in no apparent distress. Obesity. SKIN: No rashes, has Multiple Tattoo. HEAD: Atraumatic. Normocephalic. No temporal or scalp tenderness. EYES: Pupils equal round and reactive. Extraocular motions intact. No scleral icterus. No injection or drainage. ENT: Nose without bleeding, purulent drainage or septal hematoma. Throat without erythema, tonsillar hypertrophy or exudate. Uvula midline. Airway patent. NECK: Trachea midline. No JVD or lymphadenopathy. Supple, nontender, no meningeal signs. CARDIOVASCULAR: Regular rate and rhythm without murmurs, gallops, or rubs. RESPIRATORY: Clear to auscultation. Breath sounds equal bilaterally. No wheezes , rales, or rhonchi. GASTROINTESTINAL: Abdomen soft, non-tender, nondistended. No hepato-splenomegaly , or palpable masses. No guarding. MUSCULOSKELETAL: Extremities without clubbing, cyanosis, has Orthotics on Left Leg. NEUROLOGICAL: Awake and alert. Cranial nerves II through XII intact. Hospital Course This is a pleasant 47 y/o Male with history of Alcohol abuse, presents to [facility] after a fall and left ankle pain. Patient states that he fell in the kitchen however is unable to give any further details as he does not remember and intoxicated with alcohol. As per Ed physician report, patient's mother told EMS patient passed out but patient does not remember. Complains of some rib pain and left ankle pain. Patient seen in ED found to have an open fracture of left ankle. Fracture was reduced by ED physician and placed on a cast. 05/17: with Diagnosis of Open left ligamentous bimalleolar ankle fracture dislocation status post I&D, ORIF left ankle fracture Stable seen in his bedroom, continue with Pain will switch to by mouth pain medicine, continue PT and awaiting final by Orthopedic surgery for discharge and loan and credit manager, continue CIWA protocol, no signs of Alcohol Withdrawal. 05/18: stable recommended by Orthopedic surgery to complete antibiotics for one to two days IV due to Open fracture management protocol at this time no complaint, encourage activity and will be discharge in am tomorrow. 05/19: Stable in his bedroom, no complaint, no nausea, vomit or diarrhea, POD #3 , NWB LLE in splint, elevate and Ice, PT for Mobilization, Pain control, Okay to discharge and follow with Doctor Herman in two weeks. Assessment and Plan 1. Fall with secondary with Diagnosis of Open left ligamentous bimalleolar ankle fracture dislocation status post I&D, ORIF left ankle fracture has Orthotics in place on Left leg, as recommended by Orthopedic surgery to discharge once two days of antibiotics IV given, today seen by his Primary Orthopedic mechanical integrity specialist Doctor Cora Herman, recommended to discharge today, continue PT for ambulation, NWB on LLE, follow up in two weeks. 2. Alcohol Intoxication, in a patient with Alcohol Dependence with Possible Alcohol withdrawal on CIWA protocol. No signs of alcohol withdrawal. removed Ativan. stable no signs of withdrawal, continue Thiamin. 3. Electrolyte derangement replaced. Physical Therapy recommended to go to SNF the patient is Self pay awaiting final recommendations by loan and credit manager for discharge may go home on [facility] for PT and Skilled nurse if not able to go to SNF. DVT prophylaxis Heparin. Discharge Planning Discharge to SNF now as recommended by PT specialist. Pt Condition on Discharge: Good Discharge Disposition: Discharge to SNF Discharge Time: > 30 minutes Discharge Instructions DIET: Follow Instructions for: As Tolerated, No Restrictions Activities you can perform: See Additionl Instruction Other Activity Instructions: No Weight bearing on LLE and follow with Orthopedic surgery in two weeks. Tavares Mares MD May 19, 2017 10:12
[2017-05-19] MEDS ORDERED: POTASSIUM CHLORIDE 20 MEQ CONTROLLED RELEASE TAB PO ONE (10:30)
[2017-05-19 12:00] VITALS: BP 144/96; PULSE 92; RESP 18; TEMP 97.7; O2SAT 96
[2017-05-20] MEDS ORDERED: THIAMINE HCL 100 MG TAB PO SCH (09:00)
--- NOTE | 2017-05-23 11:11 | MP ---
cc: JOSE SOSA MD DATE OF SURGERY: 05/16/2017 PREOPERATIVE DIAGNOSIS Open left ligamentous bimalleolar ankle fracture with syndesmotic injury. POSTOPERATIVE DIAGNOSIS 1. Open left ankle fracture. 2. Ligamentous bimalleolar ankle fracture. 3. Left syndesmotic injury. ANESTHESIA General. COMPLICATIONS None. SPECIMEN None. ESTIMATED BLOOD LOSS Approximately 75 cc. INDICATIONS FOR PROCEDURE The patient is a 47-year-old gentleman who presented to the emergency department after he reportedly slipped and fell at home in his kitchen while he was drunk. He was significantly intoxicated but denied any other injury. Management of the injury was discussed with the patient and given the open nature of his injury it was recommended he undergo I&D and ORIF of his left ankle. The risks of the procedure including but not limited to risk of infection, malunion, nonunion, hardware malposition or failure, ankle arthritis, damage to neurovascular structures, possible need for other surgery, and other unforeseen complications were discussed. The patient did elect to proceed with the aforementioned procedure. DESCRIPTION OF PROCEDURE The patient was taken back to the operating room and placed supine on the operating room table. General anesthesia then ensued. The patient was prepped and draped in standard sterile fashion. A timeout was performed to identify the correct patient, side, site and procedure to be performed. Preoperative antibiotics had been administered since admission given the open nature of his injury. We then turned our attention to the medial aspect of the patient's ankle with an approximately 2 cm open wound over the medial malleolus. The patient's ankle was noted to be grossly unstable. Copious irrigation was performed through the open arthrotomy that had been created during the injury. There was no evidence of gross contamination with debris. The skin edges were debrided to allow for approximation at the end of the procedure. A lateral incision was then made over the distal fibula and lateral malleolus fracture. Sharp dissection and electrocautery were used to approach the fracture site. The fracture site was reduced with the help of bone reduction clamps. A distal fibular Synthes locking plate was then placed. Once the fracture was found to be in acceptable position the plate was then fixed to bone with locking and non-locking screws. Again, the fracture was found to be in acceptable alignment, however, with external rotation stress the syndesmosis did appear to widen. At that time a syndesmotic screw was placed from lateral to medial through the fibula and into the distal tibia. At this point the syndesmosis appeared to be reduced on radiographs. The medial wound and lateral wound were copiously irrigated again with normal saline laden with gentamicin. The medial and lateral incisions were then closed with interrupted Vicryl and nylon sutures. A sponge was placed on the patient's ankle with sterile dressings underneath. The patient was then awoken from general anesthesia without complication. DISPOSITION The patient was instructed to remain non-weightbearing to his left lower extremity. The patient was instructed to follow-up in approximately two weeks' time. MD LUTHER Antunez/MAURICIO /10:30 AM /10:43 AM
== END 2017-05-19 14:19 | disposition home or self-care (01) | DRG 494 ==
LOC: NEPE 07:10 → NEDA 09:44 → N06A 15:39
PROVIDERS: ADMIT Internal Medicine; ATTEND Internal Medicine
PROC: 0QSKXZZ Reposition Left Fibula, External Approach (ICD-10-PCS; 2017-05-16)
PROC: 0QSH04Z Reposition Left Tibia with Internal Fixation Device, Open Approach (ICD-10-PCS; 2017-05-16)
PROC: 0SSG04Z Reposition Left Ankle Joint with Internal Fixation Device, Open Approach (ICD-10-PCS; 2017-05-16)
PROC: 0QSK04Z Reposition Left Fibula with Internal Fixation Device, Open Approach (ICD-10-PCS; principal; 2017-05-16 17:32)
DX: S82.842B Displaced bimalleolar fracture of left lower leg, initial encounter for open fracture type I or II (principal); S93.05XA Dislocation of left ankle joint, initial encounter; E87.6 Hypokalemia; F10.229 Alcohol dependence with intoxication, unspecified; Y90.8 Blood alcohol level of 240 mg/100 ml or more; W01.0XXA Fall on same level from slipping, tripping and stumbling without subsequent striking against object, initial encounter; Y92.000 Kitchen of unspecified non-institutional (private) residence as the place of occurrence of the external cause; Z88.0 Allergy status to penicillin
CPT/HCPCS: 28435; 70450; 71260; 72125; 73600; 74177; 76000; 80053; 80061; 80307; 81001; 82435; 82565; 82607; 82746; 82947; 82948; 83036; 83735; 84132; 84295; 84520; 85025; 85610; 85730; 86850; 86900; 86901; 90471; 90715; 93005; 94150; 94640; 94664; 96361; 96365; 96375; C1713; J0131; J0690; J1170; J1580; J1644; J2060; J2250; J2270; J2405; J2710; J3010; J3411; J3475; J3480; J7030; J7040; J7120; J7613; Q9967

== ENCOUNTER 2017-07-07 10:08 | Emergency (ER) | payer SELFPAY ==
[~2017-07-07] VITALS: Ht 180.3 cm; Wt 111.0 kg
[~2017-07-07 10:08] MED LIST changes: +HYDR-3580 PO; -IBUP600T26 PO; +MAGN400T2 PO; -PALI117P IM; -PENI500T PO; -PERC5TAB12 PO; +THIA100 PO; +WALKER WHEELS/F1 MIS; +WALKER/ADULT/FO1 MIS
--- NOTE | 2017-07-07 11:27 | PD ---
HPI Chief Complaint: Medical Clearance Time Seen by Provider: 11:18 Travel History International Travel<30 days: No Contact w/Intl Traveler<30days: No Traveled to known affect area: No History of Present Illness HPI 47-year-old male presents to the ED requesting a walking boot. The patient broke his left leg approximately 6 weeks ago. He states that he was told by his orthopedist to come to the ED for a walking boot. He states that he has been walking on his cast for approximately one week. On presentation the patient complains of pain in the left lower leg. He denies numbness, tingling, weakness, limitations to range of motion of the extremity. He states that he is prescribed pain medications but he did not take them before he left the house. He also complains of 2 day history of nonproductive cough. He denies fevers, chills, nausea, vomiting, lower extremity edema. He is not a smoker. He is a follow-up appointment with his orthopedist, Dr. Herman at 1pm this afternoon. History Past Medical Histgory Hx Cancer: No Social History Alcohol Use: Yes (DAILY "COUPLE SHOTS OF VODKA") Tobacco Use: No Allergies-Medications (Allergen,Severity, Reaction): Coded Allergies: penicillin G (Verified Allergy, Severe, UNKNOWN, 07/07/17) Uncoded Allergies: SNAKI ANI VENOM (Allergy, Severe, UNKNOWN, 02/02/10) Reported Meds & Prescriptions Reported Meds & Active Scripts Active Magnesium Oxide 400 Mg Tab 400 Mg PO DAILY Gnp Vitamin B-1 (Thiamine HCl) 100 Mg Tab 100 Mg PO DAILY Hydrocodone-Acetaminophen 7.5-325 mg Tab 1 Tab PO Q4H PRN Walker/Adult/Folding (Device) 1 Mis Mis Ea .ROUTE DIRECTED Walker with Front Wheels (Device) 1 Mis Mis Ea .XX DIRECTED Review of Systems Except as stated in HPI: all other systems reviewed are Neg Physical Exam Narrative GENERAL: Well-nourished, well-developed white male in no acute distress. SKIN: Focused skin assessment warm/dry. HEAD: Normocephalic. EYES: No scleral icterus. No injection or drainage. NECK: Supple, trachea midline. No JVD or lymphadenopathy. CARDIOVASCULAR: Regular rate and rhythm without murmurs, gallops, or rubs. RESPIRATORY: Breath sounds equal bilaterally. No accessory muscle use. GASTROINTESTINAL: Abdomen soft, non-tender, nondistended. MUSCULOSKELETAL: No cyanosis, or edema. LEFT LOWER EXTREMITY EXAM: Short leg cast present. Patient is able to wiggle the toes. Cap refill less than 2 seconds. Sensation intact to light touch distally. BACK: Nontender without obvious deformity. No CVA tenderness. Data Data Last Documented VS Vital Signs Date Time Temp Pulse Resp B/P (MAP) Pulse Ox O2 Delivery O2 Flow Rate FiO2 07/07/17 11:38 95 18 143/93 (110) 98 Room Air MDM Medical Screen Exam Complete: Yes Emergency Medical Condition: No Narrative Course 47-year-old male presents to the ED requesting a walking boot. Left lower extremity fracture approximately 6 weeks ago, followed by Dr. Herman. He states that he was told to come here for the boot because he doesn't have insurance. He has a follow-up appointment this afternoon. A medical screening exam was performed: At the time of evaluation the presenting medical condition was determined not to be of an emergent nature. The patient was given the option of receiving additional care, but declined. Patient was given options for additional community resources from which to obtain care. The Patient Has Been advised to seek medical attention for their presenting complaint. The patient has been advised to return to the ER at any time if an emergent condition develops. Primary Impression: Encounter for medical screening examination Referrals: Cora Herman MD Condition: Stable Jonelle Roca Jul 07, 2017 11:27
[2017-07-07 11:38] VITALS: BP 143/93; PULSE 95; RESP 18; O2SAT 98
== END 2017-07-07 11:42 | disposition left against medical advice (07) ==
LOC: NEPC 10:08
DX: M79.662 Pain in left lower leg (principal); R05 Cough; Z79.899 Other long term (current) drug therapy; Z88.0 Allergy status to penicillin
CPT/HCPCS: 99281; L2114